=== PATIENT | male | born 1930 | race Caucasian/White ===

== ENCOUNTER 2016-04-20 16:57 | Inpatient (IN) | payer MEDICARE, OTHER ==
[~2016-04-20] VITALS: Ht 170.2 cm; Wt 72.9 kg
[~2016-04-20 16:57] MED LIST: ASPI325T PO; FISH1000 PO; HYDR500C PO; PROT40TA PO; VITA10003 PO; XARE15TA PO; ZOCO40TA PO
[2016-04-20 16:58] VITALS: BP 146/61; PULSE 88; RESP 16; TEMP 98.2; O2SAT 97
[2016-04-20] MEDS ORDERED: SODIUM CHLOR 0.9% 1000 ML INJ 1,000 ML IV SCH (17:35)
--- NOTE | 2016-04-20 17:52 | PD ---
HPI Chief Complaint: GI Complaint Time Seen by Provider: 17:48 Travel History International Travel<30 days: No Contact w/Intl Traveler<30days: No Traveled to known affect area: No History of Present Illness HPI 86-year-old male that presents to the ED for evaluation of dark stools. Per patient he has had dark stools 3 times since yesterday. Twice yesterday and once today. Per patient he recently was put on Xarelto for DVT by his PCP. Patient has been compliant with this medication. Per patient he has had no pain on the abdomen. No fevers chills or sweats. No chest pain or shortness of breath. No lightheadedness or dizziness. Per patient only concern is a dark stool. A sugar a sample of the stool and is definitely black. No obvious blood. Patient denies any history of hemorrhoids. Patient denies having anything like this before. No recent colonoscopy or EGD that he can tell me. He denies any history of bleeding disorders. PFSH Past Medical History Hx Anticoagulant Therapy: Yes (XARELTO) Blood Disorders: Yes (ELEVATED PLATELETS; TAKES MEDICATION FOR) Cardiac Catheterization: Yes (2 VESSEL IN 1999) Cardiovascular Problems: Yes (DOUBLE BYPASS) High Cholesterol: Yes Chemotherapy: No Coronary Artery Disease: Yes Diminished Hearing: Yes Endocrine: No Genitourinary: Yes Immune Disorder: No Kidney Stones: Yes (LITHOTRIPSY X 3) Musculoskeletal: No Neurologic: No Psychiatric: No Reproductive: No Respiratory: No Immunizations Current: Yes Radiation Therapy: No Past Surgical History AICD: No Arteriovenous Shunt: No Cardiac Surgery: Yes (CARDIAC CATH 2 VESSELS IN 1999) Coronary Artery Bypass Graft: Yes Genitourinary Surgery: Yes (LITHOTRIPSY X 3) Insulin Pump: No Joint Replacement: No Pacemaker: No Other Surgery: Yes (CYST ON HEAD REMOVED) Social History Alcohol Use: No Tobacco Use: No Substance Use: No Allergies-Medications (Allergen,Severity, Reaction): Coded Allergies: Gabapentin (Verified Adverse Reaction, Severe, Dizziness, 01/17/16) Reported Meds & Prescriptions Reported Meds & Active Scripts Active Reported Xarelto (Rivaroxaban) 20 Mg Tab 20 Mg PO DAILY Fish Oil ([place]-3 Fatty Acids) 1,000 Mg Cap 1 Cap PO DAILY Aspirin 325 Mg Tab 325 Mg PO DAILY Vitamin D-3 (Cholecalciferol) 1,000 Unit Tab 1,000 Units PO DAILY Hydrea (Hydroxyurea) 500 Mg Cap 500 Mg PO DAILY Zocor (Simvastatin) 40 Mg Tab 40 Mg PO HS Protonix (Pantoprazole Sodium) 40 Mg Tab 40 Mg PO DAILY Review of Systems Except as stated in HPI: all other systems reviewed are Neg Physical Exam Narrative GENERAL: SKIN: Warm and dry. HEAD: Atraumatic. Normocephalic. EYES: Pupils equal and round. No scleral icterus. No injection or drainage. ENT: No nasal bleeding or discharge. Mucous membranes pink and moist. Tongue is midline. No blood deviation. NECK: Trachea midline. No JVD. CARDIOVASCULAR: Regular rate and rhythm. RESPIRATORY: No accessory muscle use. Clear to auscultation. Breath sounds equal bilaterally. GASTROINTESTINAL: Abdomen soft, non-tender, nondistended. Hepatic and splenic margins not palpable. Rectal exam: Patient has dark stools noted on the rectum. No obvious blood or hemorrhoids noted. MUSCULOSKELETAL: Extremities without clubbing, cyanosis, or edema. No obvious deformities. NEUROLOGICAL: Awake and alert. No obvious cranial nerve deficits. Motor grossly within normal limits. Five out of 5 muscle strength in the arms and legs. Normal speech. PSYCHIATRIC: Appropriate mood and affect; insight and judgment normal. Data Data Last Documented VS Vital Signs Date Time Temp Pulse Resp B/P Pulse Ox O2 Delivery O2 Flow Rate FiO2 04/20/16 16:58 98.2 88 16 146/61 97 Orders Complete Blood Count With Diff (04/20/16 17:35) Comprehensive Metabolic Panel (04/20/16 17:35) Lipase (04/20/16 17:35) Prothrombin Time / Inr (Pt) (04/20/16 17:35) Act Partial Throm Time (Ptt) (04/20/16 17:35) Urinalysis - C+S If Indicated (04/20/16 17:35) Iv Access Insert/Monitor (04/20/16 17:35) Ecg Monitoring (04/20/16 17:35) Oximetry (04/20/16 17:35) Sodium Chlor 0.9% 1000 Ml Inj (Ns 1000 M (04/20/16 17:35) Electrocardiogram (04/20/16 17:35) Type And Screen (04/20/16 17:35) Pantoprazole Inj (Protonix Inj) (04/20/16 19:00) Labs Laboratory Tests Test 04/20/16 17:49 White Blood Count 7.5 TH/MM3 Red Blood Count 2.62 MIL/MM3 Hemoglobin 10.0 GM/DL Hematocrit 29.0 % Mean Corpuscular Volume 111.0 FL Mean Corpuscular Hemoglobin 38.2 PG Mean Corpuscular Hemoglobin 34.4 % Concent Red Cell Distribution Width 13.3 % Platelet Count 248 TH/MM3 Mean Platelet Volume 7.7 FL Neutrophils (%) (Auto) 48.3 % Lymphocytes (%) (Auto) 36.3 % Monocytes (%) (Auto) 10.0 % Eosinophils (%) (Auto) 4.0 % Basophils (%) (Auto) 1.4 % Neutrophils # (Auto) 3.6 TH/MM3 Lymphocytes # (Auto) 2.7 TH/MM3 Monocytes # (Auto) 0.7 TH/MM3 Eosinophils # (Auto) 0.3 TH/MM3 Basophils # (Auto) 0.1 TH/MM3 CBC Comment DIFF FINAL Differential Comment Prothrombin Time 15.2 SEC Prothromb Time International 1.4 RATIO Ratio Activated Partial 33.0 SEC Thromboplast Time Sodium Level 140 MEQ/L Potassium Level 3.7 MEQ/L Chloride Level 107 MEQ/L Carbon Dioxide Level 25.2 MEQ/L Anion Gap 8 MEQ/L Blood Urea Nitrogen 28 MG/DL Creatinine 1.60 MG/DL Estimat Glomerular Filtration 41 ML/MIN Rate Random Glucose 123 MG/DL Calcium Level 8.4 MG/DL Total Bilirubin 0.4 MG/DL Aspartate Amino Transf 11 U/L (AST/SGOT) Alanine Aminotransferase 17 U/L (ALT/SGPT) Alkaline Phosphatase 48 U/L Total Protein 6.6 GM/DL Albumin 3.0 GM/DL Lipase 91 U/L Blood Type A POSITIVE Antibody Screen NEGATIVE [facility] Medical Decision Making Medical Screen Exam Complete: Yes Emergency Medical Condition: Yes Medical Record Reviewed: Yes Interpretation(s) CBC & BMP Diagram 04/20/16 17:49 LFTs and lipase WNL EKG shows sinus rhythm with no sign of acute ischemia or arrhythmia. Coags are elevated Differential Diagnosis GI bleed versus diverticulitis versus coagulopathy Narrative Course 86-year-old male that presents to the ED for evaluation of dark stools. Patient was properly examined and was found to have signs and symptoms very consistent what appears to be upper GI bleed. Hemoccult was done by me and was positive. Patient currently on Xarelto which is a blood thinner. My recommendation at this time is to do blood work and possible scans. Case was discussed in my attending who agrees with plan. Patient was started on Protonix drip. Labs came back and show slight anemia. Patient had blood work done on april 10 and hematocrit and hemoglobin have dropped from 12/ to . Case was discussed in my attending who recommends admission as patient will need to be evaluated for possible continuation of anticoagulation versus IVC filter. As well as possible evaluation for GI consult. This was discussed with patient and family who agree with plan. Residents were paged. They agreed to admission. 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 Procedures EKG Prior to Arrival: No HemaPrompt Point of Care Internal Pos. & Neg. Controls: Passed Fecal Specimen Occult Blood: Positive Diagnosis Primary Impression: GI bleed Qualified Code: K25.4 - Gastrointestinal hemorrhage associated with gastric ulcer Additional Impressions: Coagulopathy Hemoglobin drop DVT (deep venous thrombosis) Qualified Code: I82.412 - Acute deep vein thrombosis (DVT) of femoral vein of left lower extremity Admitting Information Admitting Physician Requests: Admit Malcolm Wright Apr 20, 2016 17:52
[2016-04-20 18:01] LABS: AUTOMATED NEUTROPHIL # 3.6 TH/MM3 (1.8-7.7); BASOPHIL # 0.1 TH/MM3 (0-0.2); BASOPHIL % 1.4 % (0.0-2.0); EOSINOPHIL # 0.3 TH/MM3 (0-0.4); HEMO FLAGS DIFF FINAL; LYMPH % 36.3 % (9.0-44.0); LYMPHOCYTE # 2.7 TH/MM3 (1.0-4.8); MEAN CORPUSCULAR HEMOGLOBIN 38.2 PG (27.0-34.0); MEAN CORPUSCULAR HGB CONC 34.4 % (32.0-36.0); NEUT % 48.3 % (16.0-70.0); PLATELET COUNT 248 TH/MM3 (150-450); RED BLOOD COUNT 2.62 MIL/MM3 (4.50-5.90); RED CELL DISTRIBUTION WIDTH 13.3 % (11.6-17.2); WHITE BLOOD COUNT 7.5 TH/MM3 (4.0-11.0)
[2016-04-20] MEDS ORDERED: XARE20TA PO (18:12)
[2016-04-20 18:16] LABS: INTERNATIONAL NORMALIZED RATIO 1.4 RATIO; PROTHROMBIN TIME - PATIENT 15.2 SEC (9.8-11.6)
[2016-04-20 18:27] LABS: ANION GAP 8 MEQ/L (5-15); AST (GOT) 11 U/L (15-37); BICARBONATE 25.2 MEQ/L (21.0-32.0); BLOOD UREA NITROGEN 28 MG/DL (7-18); CHLORIDE 107 MEQ/L (98-107); GLOMERULAR FILTRATION RATE 41 ML/MIN (>89); POTASSIUM 3.7 MEQ/L (3.5-5.1); SODIUM (NA) 140 MEQ/L (136-145)
[2016-04-20 18:31] LABS: ALKALINE PHOSPHATASE 48 U/L (45-117); ALT (GPT) 17 U/L (12-78); TOTAL BILIRUBIN ADULT 0.4 MG/DL (0.2-1.0)
--- NOTE | 2016-04-20 19:46 | HHI.HP ---
[facility] Service Family Medicine Primary Care Physician Rosi Ramirez MD Admission Diagnosis Diagnoses: International Travel<30 Days: No Contact w/Intl Traveler<30days: No Known Affected Area: No History of Present Illness 86-year-old male with a recent past medical history of DVT who was just started on xarelto 3 weeks ago presents to the ER with dark stools for 2 days. Yesterday, he noticed 3 dark, tarry stools. All were formed. He brings in a sample of his stool in a jar. Again today, he noticed dark stools 2. He denies abdominal pain. No nausea, vomiting, diarrhea, constipation. His last colonoscopy was in 2007 as was normal. Review of Systems Constitutional: COMPLAINS OF: Weight loss (lost 12 pounds in 2-3 months), DENIES: Fever, Chills Eyes: DENIES: Blurred vision, Diplopia Ears, nose, mouth, throat: DENIES: Hearing loss, Vertigo Respiratory: DENIES: Cough, Shortness of breath Cardiovascular: DENIES: Chest pain, Palpitations Gastrointestinal: COMPLAINS OF: Black stools, Constipation (gets constipated 1- 2 times a month), DENIES: Abdominal pain, Bloody stools, Diarrhea, Nausea, Vomiting Genitourinary: DENIES: Urgency, Dysuria Neurologic: DENIES: Abnormal gait, Headache Psychiatric: DENIES: Anxiety, Confusion Past Family Social History Past Medical History Chronic kidney disease Multiple skin cancers Kidney stones Chronic myeloproliferative disorder Coronary artery disease Cataracts Spinal Stenosis Past Surgical History Colonoscopy in 2007 Heart bypass in 1999 Cataracts in 1992 Reported Medications Reported Meds & Active Scripts Active Reported Xarelto (Rivaroxaban) 20 Mg Tab 20 Mg PO DAILY Fish Oil ([place]-3 Fatty Acids) 1,000 Mg Cap 1 Cap PO DAILY Aspirin 325 Mg Tab 325 Mg PO DAILY Vitamin D-3 (Cholecalciferol) 1,000 Unit Tab 1,000 Units PO DAILY Hydrea (Hydroxyurea) 500 Mg Cap 500 Mg PO DAILY Zocor (Simvastatin) 40 Mg Tab 40 Mg PO HS Protonix (Pantoprazole Sodium) 40 Mg Tab 40 Mg PO DAILY Allergies: Coded Allergies: Gabapentin (Verified Adverse Reaction, Severe, Dizziness, 01/17/16) Active Ordered Medications Active Medications Pantoprazole Sodium/Sodium Chloride (Protonix Inj/NS Inj) 100 ml @ 10 mls/hr Q10H IV; Start 04/20/16 at 19:00 Sodium Chloride 1,000 ml @ 1,000 mls/hr Q1H IV Last administered on 04/20/16t 18 :29; Admin Dose 1,000 MLS/HR; Start 04/20/16 at 17:35; Stop 04/20/16 at 18:34; Status DC Family History Mom: doesn't know Dad: colon cancer, 80s Son: healthy Social History Tobacco: none Alcohol: none Illicit: none Physical Exam Vital Signs Vital Signs Date Time Temp Pulse Resp B/P Pulse Ox O2 Delivery O2 Flow Rate FiO2 04/20/16 16:58 98.2 88 16 146/61 97 Physical Exam GENERAL: This is a well-nourished, well-developed patient, in no apparent distress. SKIN: No rashes, ecchymoses or lesions. Cool and dry. HEAD: Atraumatic. Normocephalic. No temporal or scalp tenderness. EYES: Pupils equal round and reactive. Extraocular motions intact. No scleral icterus. No injection or drainage. ENT: Nose without bleeding, purulent drainage or septal hematoma. Throat without erythema, tonsillar hypertrophy or exudate. Uvula midline. Airway patent. NECK: Trachea midline. No JVD or lymphadenopathy. Supple, nontender, no meningeal signs. CARDIOVASCULAR: Regular rate and rhythm without murmurs, gallops, or rubs. RESPIRATORY: Clear to auscultation. Breath sounds equal bilaterally. No wheezes , rales, or rhonchi. GASTROINTESTINAL: Abdomen soft, non-tender, nondistended. No hepato-splenomegaly , or palpable masses. No guarding. MUSCULOSKELETAL: Extremities without clubbing, cyanosis, or edema. No joint tenderness, effusion, or edema noted. No calf tenderness. Negative Homans sign bilaterally. NEUROLOGICAL: Awake and alert. Cranial nerves II through XII intact. Motor and sensory grossly within normal limits. Five out of 5 muscle strength in all muscle groups. Normal speech. Laboratory Laboratory Tests Test 04/20/16 17:49 White Blood Count 7.5 Red Blood Count 2.62 Hemoglobin 10.0 Hematocrit 29.0 Mean Corpuscular Volume 111.0 Mean Corpuscular Hemoglobin 38.2 Mean Corpuscular Hemoglobin 34.4 Concent Red Cell Distribution Width 13.3 Platelet Count 248 Mean Platelet Volume 7.7 Neutrophils (%) (Auto) 48.3 Lymphocytes (%) (Auto) 36.3 Monocytes (%) (Auto) 10.0 Eosinophils (%) (Auto) 4.0 Basophils (%) (Auto) 1.4 Neutrophils # (Auto) 3.6 Lymphocytes # (Auto) 2.7 Monocytes # (Auto) 0.7 Eosinophils # (Auto) 0.3 Basophils # (Auto) 0.1 CBC Comment DIFF FINAL Differential Comment Prothrombin Time 15.2 Prothromb Time International 1.4 Ratio Activated Partial 33.0 Thromboplast Time Sodium Level 140 Potassium Level 3.7 Chloride Level 107 Carbon Dioxide Level 25.2 Anion Gap 8 Blood Urea Nitrogen 28 Creatinine 1.60 Estimat Glomerular Filtration 41 Rate Random Glucose 123 Calcium Level 8.4 Total Bilirubin 0.4 Aspartate Amino Transf 11 (AST/SGOT) Alanine Aminotransferase 17 (ALT/SGPT) Alkaline Phosphatase 48 Total Protein 6.6 Albumin 3.0 Lipase 91 Blood Type A POSITIVE Antibody Screen NEGATIVE Result Diagram: 04/20/16174804/20/16 174 Assessment and Plan Assessment and Plan 86-year-old male being admitted for GI bleed. Hemoccult positive. His hemoglobin has decreased from 12.3 to 10.0 from 04/10-04/20 Code Status Full Problem List: (1) GI bleed Status: Acute Plan: The ER physician has consulted gastroenterology and hematology given the patient's history of DVT and new onset GI bleed. Hemoglobin stable at 10.0 -Repeat H&H at 0000 on04/21 -Continue Protonix drip -Type and cross -Nothing by mouth at midnight in case GI plans to scope this patient. -Normal saline at 130 ml per hour (2) Chronic Renal Failure / insufficiency, unspec Status: Chronic Plan: Creatinine stable at 1.6 (3) DVT (deep venous thrombosis) Status: Acute Plan: Patient has a known left femoral DVT prior to admission. He was started on xarelto for anticoagulation. Hold xarelto given GI bleed as above. Hematology has been consulted (4) FEN/PPX Status: Acute Plan: Fluids: Normal saline at 130 ML per hour Electrolytes: Monitor and replace when necessary Nutrition: Nothing by mouth at midnight Prophylaxis: Bilateral SCDs. Hold xarelto Chronic medical conditions: Chronic myeloproliferative disorder-continue hydroxyurea Hyperlipidemia: Continue Zocor Physician Certification 2 Midnight Certification Type: Admission for Inpatient Services Order for Inpatient Services The services are ordered in accordance with Medicare regulations or non- Medicare payer requirements, as applicable. In the case of services not specified as inpatient-only, they are appropriately provided as inpatient services in accordance with the 2-midnight benchmark. Estimated LOS (days): 2 days is the estimated time the patient will need to remain in the hospital, assuming treatment plan goals are met and no additional complications. Post-Hospital Plan: Home Problem Qualifiers (1) GI bleed: Qualified Code: K25.4 - Gastrointestinal hemorrhage associated with gastric ulcer (2) DVT (deep venous thrombosis): Qualified Code: I82.412 - Acute deep vein thrombosis (DVT) of femoral vein of left lower extremity Ty Ramirez MD R2 Apr 20, 2016 19:46
[2016-04-20] MEDS ORDERED: ACETAMINOPHEN 325 MG TAB PO PRN (20:30)
[2016-04-20] MEDS ORDERED: hydrALAZINE HCL 10 MG TAB PO PRN (20:30)
[2016-04-20] MEDS ORDERED: ONDANSETRON HCL 4 MG/2 ML VIAL IV PRN (20:30)
[2016-04-20] MEDS ORDERED: SODIUM CHLORIDE 0.9% FLUSH 5 ML FLUSH FLUSH PRN (20:30)
[2016-04-20] MEDS ORDERED: NON-FORMULARY DRUG (Simvastatin (Zocor) 40 MG) PO SCH (21:00)
--- NOTE | 2016-04-20 21:40 | EKG ---
Date Performed: 04/20/2016 Time Performed: 17:59:52 PTAGE: 86 years EKG: SINUS BRADYCARDIA WITH OCCASIONAL SUPRAVENTRICULAR PREMATURE COMPLEXES NONSPECIFIC ST & T-[address] ABNORMALITY BORDERLINE ECG PREVIOUS TRACING : 10/21/2015 07.42 No significant change DOCTOR: Jean-Claude Seay Interpretating Date/Time 04/20/2016 21:39:40
[2016-04-20] MEDS: SODIUM CHLOR 0.9% 1000 ML INJ 1,000 ML IV SCH (21:51)
[2016-04-20] MEDS: PANTOPRAZOLE INJ 80 MG in SODIUM CHLORIDE 0.9% INJ 100 ML IV SCH (21:51)
[2016-04-20 23:56] LABS: HEMATOCRIT 25.5 % (39.0-51.0); REVIEW FLAG FINAL
[2016-04-21] VITALS (7 sets, daily range): BP systolic 114–163; BP diastolic 55–95; PULSE 59–80; RESP 16; TEMP 96–97; O2SAT 95–100
[2016-04-21] MEDS: SODIUM CHLOR 0.9% 1000 ML INJ 1,000 ML IV SCH (00:11)
[2016-04-21] MEDS: PRAVASTATIN SOD 80 MG TAB PO SCH ×2 (00:12→21:19)
[2016-04-21 06:59] LABS: ALT (GPT) 13 U/L (12-78); ANION GAP 5 MEQ/L (5-15); AST (GOT) 10 U/L (15-37); BICARBONATE 26.6 MEQ/L (21.0-32.0); BLOOD UREA NITROGEN 23 MG/DL (7-18); CHLORIDE 114 MEQ/L (98-107); GLOMERULAR FILTRATION RATE 47 ML/MIN (>89); POTASSIUM 4.1 MEQ/L (3.5-5.1); SODIUM (NA) 146 MEQ/L (136-145)
[2016-04-21 07:02] LABS: ALKALINE PHOSPHATASE 42 U/L (45-117); TOTAL BILIRUBIN ADULT 0.4 MG/DL (0.2-1.0)
[2016-04-21 07:08] LABS: AUTOMATED NEUTROPHIL # 3.8 TH/MM3 (1.8-7.7); BASOPHIL # 0.1 TH/MM3 (0-0.2); BASOPHIL % 1.1 % (0.0-2.0); EOSINOPHIL # 0.3 TH/MM3 (0-0.4); EOSINOPHIL % 4.5 % (0.0-4.0); HEMATOCRIT 26.4 % (39.0-51.0); HEMO FLAGS DIFF FINAL; LYMPH % 30.2 % (9.0-44.0); LYMPHOCYTE # 2.1 TH/MM3 (1.0-4.8); MEAN CELL VOLUME 111.3 FL (80.0-100.0); MEAN CORPUSCULAR HEMOGLOBIN 38.8 PG (27.0-34.0); MEAN CORPUSCULAR HGB CONC 34.8 % (32.0-36.0); MONO % 9.9 % (0.0-8.0); NEUT % 54.3 % (16.0-70.0); PLATELET COUNT 198 TH/MM3 (150-450); RED BLOOD COUNT 2.37 MIL/MM3 (4.50-5.90); RED CELL DISTRIBUTION WIDTH 13.5 % (11.6-17.2); WHITE BLOOD COUNT 7.1 TH/MM3 (4.0-11.0)
[2016-04-21] MEDS: LACTATED RINGER'S 1000 ML INJ 1,000 ML IV SCH ×2 (08:55→16:30)
[2016-04-21] MEDS: PANTOPRAZOLE INJ 80 MG in SODIUM CHLORIDE 0.9% INJ 100 ML IV SCH ×2 (08:55→21:19)
[2016-04-21] MEDS: HYDROXYUREA 500 MG CAP PO SCH (09:00)
--- NOTE | 2016-04-21 10:34 | HHI.FPPN ---
Subjective Remarks Pt. seen, examined and discussed with the Med A team. This is an 86 yo male who presents with a 2-3 day history of black tarry stools. On March 29, patient had a left lower extremity venous Doppler after having been seen approximately one week prior by his urologist. He noted that the lower extremity was swollen and ordered the test. Turned out that the result was extensive deep venous thrombosis within the left common femoral, superficial femoral, popliteal and peroneal veins. 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 Please refer to the history and physical examination for this admission for additional past, family and social history. Patient was a [employer], lives with his locally. He does not smoke or use alcohol. He has a son who lives locally and helps out his parents. Review of systems was obtained at the time of admission, and again reviewed with the patient this morning. Other than some disequilibrium and balance issues, low back pain from his spinal stenosis, skin problems with skin cancer of the scalp, and the black stools, all other systems are reported as negative. He denies any bright red blood per rectum, no hematemesis, no nausea. This morning, he reports that he did see even danyelle, tarrier stools when he had a bowel movement. He denies any pain in his chest, no abdominal pain, he is not lightheaded or dizzy when he gets up to go to the bathroom. Still has some swelling in his left leg. Objective Vitals Vital Signs Date Time Temp Pulse Resp B/P Pulse Ox O2 Delivery O2 Flow Rate FiO2 04/21/16 04:32 96.8 64 16 114/55 97 04/21/16 01:17 Room Air 04/21/16 00:07 96.6 73 16 163/65 96 04/20/16 16:58 98.2 88 16 146/61 97 I/O 04/20/16 04/20/16 04/20/16 04/21/16 04/21/16 04/21/16 07:00 15:00 23:00 07:00 15:00 23:00 Intake Total 1217 ml Balance 1217 ml Intake Oral 0 ml IV Total 1217 ml Result Diagram: 04/21/16 0512 04/21/16 0512 Other Results Laboratory Tests Test 04/20/16 04/20/16 04/21/16 17:49 23:35 05:12 White Blood Count 7.5 TH/MM3 7.1 TH/MM3 Red Blood Count 2.62 MIL/MM3 2.37 MIL/MM3 Hemoglobin 10.0 GM/DL 9.0 GM/DL 9.2 GM/DL Hematocrit 29.0 % 25.5 % 26.4 % Mean Corpuscular Volume 111.0 FL 111.3 FL Mean Corpuscular Hemoglobin 38.2 PG 38.8 PG Mean Corpuscular Hemoglobin 34.4 % 34.8 % Concent Red Cell Distribution Width 13.3 % 13.5 % Platelet Count 248 TH/MM3 198 TH/MM3 Mean Platelet Volume 7.7 FL 7.7 FL Neutrophils (%) (Auto) 48.3 % 54.3 % Lymphocytes (%) (Auto) 36.3 % 30.2 % Monocytes (%) (Auto) 10.0 % 9.9 % Eosinophils (%) (Auto) 4.0 % 4.5 % Basophils (%) (Auto) 1.4 % 1.1 % Neutrophils # (Auto) 3.6 TH/MM3 3.8 TH/MM3 Lymphocytes # (Auto) 2.7 TH/MM3 2.1 TH/MM3 Monocytes # (Auto) 0.7 TH/MM3 0.7 TH/MM3 Eosinophils # (Auto) 0.3 TH/MM3 0.3 TH/MM3 Basophils # (Auto) 0.1 TH/MM3 0.1 TH/MM3 CBC Comment DIFF FINAL DIFF FINAL Differential Comment Prothrombin Time 15.2 SEC Prothromb Time International 1.4 RATIO Ratio Activated Partial 33.0 SEC Thromboplast Time Sodium Level 140 MEQ/L 146 MEQ/L Potassium Level 3.7 MEQ/L 4.1 MEQ/L Chloride Level 107 MEQ/L 114 MEQ/L Carbon Dioxide Level 25.2 MEQ/L 26.6 MEQ/L Anion Gap 8 MEQ/L 5 MEQ/L Blood Urea Nitrogen 28 MG/DL 23 MG/DL Creatinine 1.60 MG/DL 1.43 MG/DL Estimat Glomerular Filtration 41 ML/MIN 47 ML/MIN Rate Random Glucose 123 MG/DL 87 MG/DL Calcium Level 8.4 MG/DL 8.2 MG/DL Total Bilirubin 0.4 MG/DL 0.4 MG/DL Aspartate Amino Transf 11 U/L 10 U/L (AST/SGOT) Alanine Aminotransferase 17 U/L 13 U/L (ALT/SGPT) Alkaline Phosphatase 48 U/L 42 U/L Total Protein 6.6 GM/DL 5.4 GM/DL Albumin 3.0 GM/DL 2.5 GM/DL Lipase 91 U/L Blood Type A POSITIVE Antibody Screen NEGATIVE Objective Remarks O. CONSTITUTIONAL/GEN: normally nourished, in NAD. Lying comfortably in bed. EYES: conjunctiva normal, PERRLA, EOMI. ENT: Mouth and pharynx normal. Mucous membranes a little dry. NECK: Supple, no lymphadenopathy LUNGS: clear A-P, respiratory effort is normal. CARDIOVASCULAR: RR without murmur or gallop. No significant edema. GI/ABD: soft without masses, without organomegaly. Nontender to palpation, positive bowel sounds. NEURO: No focal deficits. SKIN: color normal, no rashes noted. HEME/LYMPH: no bruising, petechia or significant adenopathy MUSC: Fair capillary refill, SCDs in place on lower extremities. PSYCH/MENTAL STATUS: Alert and oriented x 3. A/P Assessment and Plan 86-year-old male being admitted for GI bleed. Hemoccult positive. His hemoglobin has decreased from 12.3 to 10.0 from from April 10 to April 20. Attending Attestation Patient seen and examined. Case reviewed and discussed with the resident team. Agree with plan of care as discussed with me and documented in the resident note. Problem List: (1) GI bleed Status: Acute Plan: The ER physician has consulted gastroenterology and hematology given the patient's history of DVT and new onset GI bleed. Hemoglobin stable at 10.0 -Repeat H&H at 0000 was 9.2 -Continue Protonix drip -Type and cross -Nothing by mouth at midnight in case GI plans to scope this patient. -Normal saline at 130 ml per hour (2) Chronic Renal Failure / insufficiency, unspec Status: Chronic Plan: Creatinine stable at 1.6 (3) DVT (deep venous thrombosis) Status: Acute Plan: Patient has a known left femoral DVT prior to admission. He was started on xarelto for anticoagulation on March 29 Hold xarelto given GI bleed as above. Hematology has been consulted (4) FEN/PPX Status: Acute Plan: Fluids: Normal saline at 130 ML per hour Electrolytes: Monitor and replace when necessary Nutrition: Nothing by mouth at midnight Prophylaxis: Bilateral SCDs. Hold xarelto Chronic medical conditions: Chronic myeloproliferative disorder-continue hydroxyurea Hyperlipidemia: Continue Zocor Problem Qualifiers (1) GI bleed: Qualified Code: K25.4 - Gastrointestinal hemorrhage associated with gastric ulcer (2) DVT (deep venous thrombosis): Qualified Code: I82.412 - Acute deep vein thrombosis (DVT) of femoral vein of left lower extremity Rosi Ramirez MD Apr 21, 2016 10:34
[2016-04-21] MEDS ORDERED: CYANOCOBALAMIN 1000 MCG/ML VIAL SQ ONE (14:00)
[2016-04-21] MEDS: PHYTONADIONE 5 MG TAB PO SCH (14:00)
[2016-04-21] MEDS ORDERED: PROPOFOL 200 MG/20 ML AMP IV ONE (15:55)
[2016-04-21] MEDS ORDERED: DO NOT ADM ANY ANTICOAGULANT DRUGS XX PRN (16:15)
--- NOTE | 2016-04-21 17:27 | MB ---
cc: ARACELI CALDERA MD, RICARDO P. PA DEVERAS, RUBY ANNE E. M.D. HOWARD, SUSAN W. MD DATE OF CONSULTATION 04/21/16 [address] Malcolm Wright. CHIEF COMPLAINT Malcolm Wright requests a consultation for Mr. Bhat regarding GI bleed on Xarelto complicating extensive left lower extremity deep vein thromboses. Question of filter placement. HISTORY OF PRESENT ILLNESS Mr. Bhat is an 86-year-old man well-known patient to Dr. Araceli Caldera with history of OLIVER 2 positive essential thrombocytosis. His disease is well controlled on Hydrea 500 mg once a day. He was last seen by Dr. Caldera on 04/11/2016. Mr. Bhat's course is complicated by extensive left lower extremity deep vein thromboses for which he was placed on anticoagulant therapy with Xarelto. Dr. Caldera recommend continuing Xarelto and place him on 20 mg once daily dosing as complete. Mr. Bhat has had normal hemoglobin until March 2016. His MCV is elevated. His platelet count is well-controlled on the Hydrea dating back to labs seen to 2001. His white cell count is normal. He has renal insufficiency dating back to 2005. His kidney function was around 30-40%. Mr. Bhat was tolerating the Xarelto and Hydrea well. There is no contraindication for concurrent use of the medication. He has near resolution of the swelling of the left lower leg. He developed dark colored stool and presented to the emergency room on April. He had PT/PTT both prolonged consistent with compliance with Xarelto. His hemoglobin has decreased to 9.2, platelet count is normal, white blood cell count is normal. His BUN is 28 and creatinine 1.6. He was admitted promptly and he has been monitored. He is hemodynamically stable, however, he continues to have dark stools. He had dark stools in the morning of the consultation. Mr. Bhat denies any pain. He has no prior history of deep vein thromboses or GI bleeding. He has no headaches. No vision changes. No nausea or vomiting. His appetite is good. His swelling in the leg has improved. Denies any chest pain or shortness of breath. The rest of his review of systems is negative. PAST MEDICAL HISTORY 1. Essential thrombocytosis OLIVER 2 positive 2. Chronic myeloproliferative disorder, 3. Coronary artery disease. 4. Cataract 5. Spinal stenosis 6. Nephrolithiasis 7. Multiple skin cancers 8. Chronic kidney disease, 9. 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 PAST SURGICAL HISTORY 1. Colonoscopy 2. Heart bypass 3. Cataract surgery FAMILY HISTORY Father of colon cancer in his 80s. SOCIAL HISTORY He is , lives with his , denies any tobacco, alcohol or illicit drug use. ALLERGIES GABAPENTIN MEDICATIONS Current include 1. Hydrea. 2. Lactated Ringer's. 3. Pravachol 4. Hydralazine 5. Pantoprazole. PHYSICAL EXAMINATION VITAL SIGNS: Temperature 96.8, heart rate 59, respiratory rate 16, blood pressure 127/95, saturation 95%. GENERAL: Mr. Bhat is a well-developed, well-nourished elderly man in no acute distress. He looks his stated age. He is awake, alert, oriented and clear minded. He is making decisions for himself. HEENT: Pupils are round, reactive to light and accommodation. Conjunctivae are pink. Oropharynx is clear. NECK: Supple. LUNGS: Clear. CARDIOVASCULAR: Normal rate, rhythm. ABDOMEN: Benign EXTREMITIES: lower extremity with mild asymmetry, left leg more prominent than the right. Pneumatic compression stockings are in place. Pulses are palpable. NEUROLOGIC: Exam is nonfocal. LABORATORY DATA As described above. ASSESSMENT/PLAN Mr. Bhat is an 86 year old man with multiple medical problems. He is seen in hematology for a OLIVER 2 positive chronic myeloproliferative disorder/essential thrombocythemia. He has platelets well-controlled on the Hydrea. Unfortunately, he developed thrombotic event recently with extensive left lower extremity deep vein thromboses. He has tolerated the Hydrea and the Xarelto well until development of GI bleed as evidenced by the decrease in hemoglobin and dark colored stools. Gastroenterology has been consulted. He remains on proton pump inhibitor. He unfortunately continues to bleed with persistence of his dark colored stool. This is probably owing to the long half life of the anticoagulant. There is evidence of persistent effect of the drug with prolonged PT and PTT. I discussed with Mr. Bhat risk and benefit of inferior vena cava filter placement. He meets criteria as he has acute bleeding with contraindication to anticoagulant therapy. He is unable to make a decision. He and his wish to discuss further this option. They request to be able to speak to radiology who places the filter to make their decision. We discussed the competing needs of needing anticoagulant therapy for his left lower extremity deep vein thromboses and needing to stop it because of his GI bleeding. We are concerned about the risk of thrombotic event from the left lower extremity deep vein clot while he is off anticoagulant therapy. It is not known how long it will take to resolve the issue of bleeding. In the meantime, supportive therapy with vitamin K is administered. Coag will be checked. His anticoagulant therapy with Xarelto has already been placed on hold. Currently, there is no antidote to Xarelto. Transfusion for hemoglobin less than eight or symptoms. Mr. Bhat's Hydrea continues as planned. His questions were answered to his satisfaction. Interventional radiology will be consulted for information gathering. We will support the patient in is decision. He understands the risk and benefit of his refusal. MD RAVINDER Berkowitz/ /12:43 PM /4:52 PM
--- NOTE | 2016-04-21 18:10 | RADRPT ---
EXAM DATE/TIME: 04/21/2016 16:59 [facility] COMPARISON: No previous studies available for comparison. EXTERNAL COMPARISON : [facility], US LEG, LEFT VENOUS DOPPLER, March 29, 2016 INDICATIONS : Left lower extremity swelling. MEDICAL HISTORY : Hypercholesterolemia. Deep venous thrombosis. Renal calculi. CAD. Elevated platelets. Anticoagulan t therapy, Xarelto. SURGICAL HISTORY : Eye implant x2. Cardiac cath. Lithotripsy x3. Blood transfusions. Cyst on head removed. ENCOUNTER: Subsequent ACUITY: 3 weeks PAIN SCORE: 2/10 LOCATION: Left leg. TECHNIQUE: Venous ultrasound of the leg was performed from the inguinal ligament to the proximal calf. Real-toshia e, color Doppler and spectral tracing, compression and augmentation techniques were used. FINDINGS: There is nonocclusive thrombus in the left proximal to distal superficial femoral vein. Distal veins are open and patent CONCLUSION: Nonocclusive thrombus in the superficial femoral vein proximal to distal. Sravan Lopez MD on April 21, 2016 at 18:08 Board Certified Radiologist. This report was verified electronically.
--- NOTE | 2016-04-21 19:10 | MB ---
cc: DENY SINGLETARY M.D. DATE OF CONSULTATION: 04/21/2016. REASON FOR CONSULTATION: Anemia, GI bleed. DATE OF : 1930. HISTORY OF PRESENT ILLNESS: Thank you for the consultation. This is an 86-year-old gentleman who was recently diagnosed with a DVT. The patient was started on Xarelto three weeks ago. The patient started having black tarry stool yesterday with multiple episodes. He brought a sample to the hospital, which was heme- positive with dark stool. The patient denies any symptoms. No nausea. No vomiting. No abdominal pain or constipation. He does not remember having an endoscopy before. He denied any other symptoms. PAST SURGICAL HISTORY: 1. Colonoscopy in 2007. 2. Heart bypass in 1999. 3. Cataract in 1992. MEDICATIONS: Reviewed in the chart. PAST MEDICAL HISTORY: Significant for: 1. Kidney stones. 2. Myeloproliferative disorder. 3. Coronary artery disease. 4. Cataracts. 5. Spinal stenosis. 6. Chronic kidney disease. 7. Skin cancer. ALLERGIES: GABAPENTIN. FAMILY HISTORY: Colon cancer. SOCIAL HISTORY: No tobacco, drug or alcohol. PHYSICAL EXAMINATION: GENERAL: Alert, oriented IN no acute distress. VITAL SIGNS: Stable. HEAD, EYES, EARS, NOSE, THROAT: Pupils are reactive to light. NECK: The neck is supple. CHEST: Clear. CARDIAC: Regular rate and rhythm. ABDOMEN: The abdomen is soft, nontender and nondistended. Positive bowel sounds. EXTREMITIES: No edema, clubbing or cyanosis at this time. NEUROLOGIC: He is neurologically intact with normal muscular and neurological function. Psychologically appropriate. LABORATORY DATA: Potassium 4.1, sodium 146, creatinine 1.43, total bilirubin 0.4, AST 10, ALT 13. White count 7.1, hemoglobin 9.2 down from 10.0, platelets 198,000. INR 1.4. ASSESSMENT AND PLAN: A pleasant 86-year-old gentleman with heme-positive stool, GI bleed, and melena on Xarelto. I recommend doing upper endoscopy and I am planning on doing this today since he seems to be actively bleeding. I discussed with them the procedure and complications. He agreed to have it done. Meanwhile we will continue supportive care. We will give him packed RBCs as needed. Further plan to follow. MD JINNY Bustos/KARLY /2:07 PM /7:00 PM
--- NOTE | 2016-04-21 22:41 | MR ---
cc: DENY DWYER DATE 04/21/16 DATE OF [address] Rosi Ramirez PROCEDURE Upper gastrointestinal endoscopy. ENDOSCOPIST Dr. Dwyer MEDICATIONS Propofol administered by anesthesia. INSTRUMENT Pentax upper scope. INDICATION An 86-year-old gentleman who has been on anticoagulation for a few weeks. The patient has black stool and anemia. PROCEDURE After informing the patient about the procedure and complication consent was signed. The patient was placed on his left lateral decub. Adequate sedation was achieved by propofol. Scope was placed in the mouth, advanced under video guidance to the second portion of the duodenum. The scope drawn back to the stomach. Retroflexion was performed. Then the scope drawn back without immediate complication. FINDINGS Esophagus: Proximal esophagitis, not biopsied because of anticoagulation. Stomach: Normal. Duodenum: Normal. No sign of active bleeding or old blood. No coffee-ground emesis. RECOMMENDATIONS 1. Monitor CBC. 2. Colonoscopy on Saturday. If negative the patient will need capsule endoscopy as an outpatient. 3. Protonix 40 milligrams daily. MD JINNY Bustos/PORTILLO /4:11 PM /10:28 PM
[2016-04-22] VITALS: BP 119/58; PULSE 72; RESP 16; TEMP 96.7; O2SAT 97
[2016-04-22] MEDS: LACTATED RINGER'S 1000 ML INJ 1,000 ML IV SCH ×3 (00:54→16:30)
[2016-04-22 05:58] LABS: AUTOMATED NEUTROPHIL # 3.9 TH/MM3 (1.8-7.7); BASOPHIL # 0.1 TH/MM3 (0-0.2); BASOPHIL % 1.1 % (0.0-2.0); EOSINOPHIL # 0.3 TH/MM3 (0-0.4); HEMATOCRIT 25.6 % (39.0-51.0); HEMO FLAGS DIFF FINAL; LYMPHOCYTE # 1.8 TH/MM3 (1.0-4.8); MEAN CELL VOLUME 110.3 FL (80.0-100.0); MEAN CORPUSCULAR HEMOGLOBIN 38.8 PG (27.0-34.0); MEAN CORPUSCULAR HGB CONC 35.2 % (32.0-36.0); MONO % 9.6 % (0.0-8.0); NEUT % 58.3 % (16.0-70.0); PLATELET COUNT 185 TH/MM3 (150-450); RED BLOOD COUNT 2.32 MIL/MM3 (4.50-5.90); RED CELL DISTRIBUTION WIDTH 13.4 % (11.6-17.2); WHITE BLOOD COUNT 6.7 TH/MM3 (4.0-11.0)
[2016-04-22 06:09] LABS: APTT (PATIENT) 27.8 SEC (24.3-30.1); INTERNATIONAL NORMALIZED RATIO 1.1 RATIO; PROTHROMBIN TIME - PATIENT 11.9 SEC (9.8-11.6)
[2016-04-22] MEDS: PANTOPRAZOLE INJ 80 MG in SODIUM CHLORIDE 0.9% INJ 100 ML IV SCH (06:27)
[2016-04-22] MEDS: PHYTONADIONE 5 MG TAB PO SCH (08:02)
[2016-04-22] MEDS: HYDROXYUREA 500 MG CAP PO SCH (08:06)
[2016-04-22] MEDS: PANTOPRAZOLE SODIUM 40 MG VIAL IV PUSH SCH (09:00)
--- NOTE | 2016-04-22 09:01 | HHI.FPPN ---
Subjective Remarks Patient had one bowel movement yesterday which was dark black. No abdominal pain. No nausea, vomiting, fever, chills, shortness of breath. He understands the plan tomorrow is for colonoscopy. He understands his endoscopy was normal. All questions answered. (Ty Ramirez MD R2) Objective Vitals Vital Signs Date Time Temp Pulse Resp B/P Pulse Ox O2 Delivery O2 Flow Rate FiO2 04/22/16 00:00 96.7 72 16 119/58 97 04/21/16 20:00 97.0 67 16 153/67 96 04/21/16 18:05 98 Nasal Cannula 2.00 04/21/16 16:20 97.7 84 100 Nasal Cannula 2 04/21/16 16:15 70 12 118/50 99 Nasal Cannula 2 04/21/16 16:04 97.7 87 12 100/57 98 Nasal Cannula 2 04/21/16 16:00 96.0 80 16 147/59 100 04/21/16 12:00 96.6 65 16 126/59 95 I/O 04/21/16 04/21/16 04/21/16 04/22/16 04/22/16 04/22/16 07:00 15:00 23:00 07:00 15:00 23:00 Intake Total 1217 ml 0 ml 760 ml 480 ml Output Total 100 ml 350 ml Balance 1217 ml -100 ml 760 ml 130 ml Intake Oral 0 ml 0 ml 360 ml 480 ml IV Total 1217 ml Other 400 ml Output Urine Total 100 ml 350 ml # Voids 2 1 # Bowel Movements 0 1 (Ty Ramirez MD R2) Result Diagram: 04/22/16 0508 04/21/16 0512 Objective Remarks O. CONSTITUTIONAL/GEN: normally nourished, in NAD. Lying comfortably in bed. ENT: Mouth and pharynx normal. Mucous membranes a little dry. LUNGS: clear A-P, respiratory effort is normal. CARDIOVASCULAR: RR without murmur or gallop. No significant edema. GI/ABD: soft without masses, without organomegaly. Nontender to palpation, positive bowel sounds. NEURO: No focal deficits. SKIN: color normal, no rashes noted. HEME/LYMPH: no bruising, petechia or significant adenopathy MUSC: Fair capillary refill, SCDs in place on lower extremities. Left leg enlarged secondary to known DVT. PSYCH/MENTAL STATUS: Alert and oriented x 3. (Ty Ramirez MD R2) A/P Assessment and Plan 86-year-old male being admitted for GI bleed. Hemoccult positive. GI consult. Discharge Planning Pending GI/hematology/interventional radiology recommendations. (Ty Ramirez MD R2) Attending Attestation Patient seen and examined. Case reviewed and discussed with the resident team. Agree with plan of care as discussed with me and documented in the resident note. (Rosi Ramirez MD) Problem List: (1) GI bleed Status: Acute Plan: Gastroenterology and hematology have been consult given the patient's history of DVT and new onset GI bleed. Hemoglobin stable -EGD on 04/21 was normal. -Colonoscopy planned for 04/23 -Pending colonoscopy results, patient may need capsule endoscopy as outpatient -Protonix 40 mg IV daily. -Lactated Ringer's at 125 ml per hour See DVT below for hematology recommendations. (2) Chronic Renal Failure / insufficiency, unspec Status: Chronic Plan: Creatinine stable at 1.4 (3) DVT (deep venous thrombosis) Status: Acute Plan: Patient has a known left femoral DVT prior to admission. He was started on xarelto for anticoagulation on March 29 Hold xarelto given GI bleed as above. Hematology has been consulted- he meets criteria for vena cava filter placement. Currently, he is unable to make a decision regarding this. Supportive therapy with vitamin K. Transfusion therapy for hemoglobin less than 8. Interventional radiology has been consult to discuss risks/benefits of IVC filter placement with the patient so he can make a better informed decision. (4) FEN/PPX Status: Acute Plan: Fluids: Normal saline at 125 ML per hour Electrolytes: Monitor and replace when necessary Nutrition: Clear liquid diet per GI Prophylaxis: Bilateral SCDs. Hold xarelto Chronic medical conditions: Chronic myeloproliferative disorder-continue hydroxyurea Hyperlipidemia: Continue Zocor (Ty Ramirez MD R2) Problem List: (1) GI bleed Status: Acute Plan: Gastroenterology and hematology have been consult given the patient's history of DVT and new onset GI bleed. Hemoglobin stable -EGD on 04/21 was normal. -Colonoscopy planned for 04/23 -Pending colonoscopy results, patient may need capsule endoscopy as outpatient -Protonix 40 mg IV daily. -Lactated Ringer's at 125 ml per hour See DVT below for hematology recommendations. (2) Chronic Renal Failure / insufficiency, unspec Status: Chronic Plan: Creatinine stable at 1.4 (3) DVT (deep venous thrombosis) Status: Acute Plan: Patient has a known left femoral DVT prior to admission. He was started on xarelto for anticoagulation on March 29 Hold xarelto given GI bleed as above. Hematology has been consulted- he meets criteria for vena cava filter placement. Currently, he is unable to make a decision regarding this. Supportive therapy with vitamin K. Transfusion therapy for hemoglobin less than 8. Interventional radiology has been consult to discuss risks/benefits of IVC filter placement with the patient so he can make a better informed decision. (4) FEN/PPX Status: Acute Plan: Fluids: Normal saline at 125 ML per hour Electrolytes: Monitor and replace when necessary Nutrition: Clear liquid diet per GI Prophylaxis: Bilateral SCDs. Hold xarelto Chronic medical conditions: Chronic myeloproliferative disorder-continue hydroxyurea Hyperlipidemia: Continue Zocor (Rosi Ramirez MD) Problem Qualifiers (1) GI bleed: Qualified Code: K92.1 - Gastrointestinal hemorrhage with melena (2) DVT (deep venous thrombosis): Qualified Code: I82.412 - Acute deep vein thrombosis (DVT) of femoral vein of left lower extremity Ty Ramirez MD R2 Apr 22, 2016 09:01 Rosi Ramirez MD Apr 22, 2016 13:35
[2016-04-22 09:47] VITALS: BP 132/56; PULSE 52; RESP 16; TEMP 96; O2SAT 94
[2016-04-22 13:27] VITALS: BP 133/52; PULSE 74; RESP 16; TEMP 96.6; O2SAT 93
[2016-04-22] MEDS ORDERED: PEG (High)/E-LYTE SOLN 4000 ML BTL PO ONE (15:00)
--- NOTE | 2016-04-22 15:34 | PD.ONC.PN ---
Subjective Subjective Remarks BM no longer as dark or black. Denies any other bleeding. Anticipating prep for colonoscopy. Objective Data Date Time Temp Pulse Resp B/P Pulse Ox O2 Delivery O2 Flow Rate FiO2 04/22/16 13:27 96.6 74 16 133/52 93 04/22/16 09:47 96.0 52 16 132/56 94 04/22/16 00:00 96.7 72 16 119/58 97 04/21/16 20:00 97.0 67 16 153/67 96 04/21/16 18:05 98 Nasal Cannula 2.00 04/21/16 16:20 97.7 84 100 Nasal Cannula 2 04/21/16 16:15 70 12 118/50 99 Nasal Cannula 2 04/21/16 16:04 97.7 87 12 100/57 98 Nasal Cannula 2 04/21/16 16:00 96.0 80 16 147/59 100 04/22/16 04/22/16 04/22/16 07:00 15:00 23:00 Intake Total 480 ml Output Total 350 ml Balance 130 ml Result Diagram: 04/22/16 0508 04/21/16 0512 Laboratory Results Laboratory Tests Test 04/22/16 05:08 White Blood Count 6.7 TH/MM3 Red Blood Count 2.32 MIL/MM3 Hemoglobin 9.0 GM/DL Hematocrit 25.6 % Mean Corpuscular Volume 110.3 FL Mean Corpuscular Hemoglobin 38.8 PG Mean Corpuscular Hemoglobin 35.2 % Concent Red Cell Distribution Width 13.4 % Platelet Count 185 TH/MM3 Mean Platelet Volume 7.7 FL Neutrophils (%) (Auto) 58.3 % Lymphocytes (%) (Auto) 27.0 % Monocytes (%) (Auto) 9.6 % Eosinophils (%) (Auto) 4.0 % Basophils (%) (Auto) 1.1 % Neutrophils # (Auto) 3.9 TH/MM3 Lymphocytes # (Auto) 1.8 TH/MM3 Monocytes # (Auto) 0.6 TH/MM3 Eosinophils # (Auto) 0.3 TH/MM3 Basophils # (Auto) 0.1 TH/MM3 CBC Comment DIFF FINAL Differential Comment Prothrombin Time 11.9 SEC Prothromb Time International 1.1 RATIO Ratio Activated Partial 27.8 SEC Thromboplast Time Fibrinogen 214 mg/dL Administered Medications Medications (Trade) Dose Ordered Sig/Radha Route PRN Reason Start Time Stop Time Status Last Admin Dose Admin Hydralazine HCl (Apresoline) 10 mg Q6H PRN PO SBP>160, DBP>90 04/20/16 20:30 04/21/16 00:12 Hydroxyurea (Hydrea) 500 mg DAILY PO 04/21/16 09:00 04/22/16 08:06 Pravastatin Sodium 80 mg 80 mg HS PO 04/20/16 21:00 04/21/16 21:19 Lactated Ringer's (Lr 1000 ml Inj) 1,000 ml @ 125 mls/hr Q8H IV 04/21/16 08:30 04/22/16 00:54 Phytonadione (Mephyton) 5 mg DAILY PO 04/21/16 14:00 04/24/16 13:59 04/22/16 08:02 Objective Remarks GENERAL: Elderly man, with mild stuttering, well-developed patient. SKIN: Warm and dry. HEAD: Normocephalic. EYES: No scleral icterus. No injection or drainage. NECK: Supple, trachea midline. No JVD or lymphadenopathy. LYMPHATIC: No adenopathy. CARDIOVASCULAR: Regular rate and rhythm without murmurs. RESPIRATORY: Breath sounds equal bilaterally. No accessory muscle use. GASTROINTESTINAL: Abdomen soft, non-tender, nondistended. EXTREMITIES: Mild asymmetry L leg more prominent. MUSCULOSKELETAL: Adequate muscle tone. NEUROLOGICAL: No obvious focal deficit. Awake, alert, and oriented x3. PSYCHIATRIC: Appropriate mood and affect; insight and judgment normal. Assessment/Plan Problem List: (1) DVT (deep venous thrombosis) Status: Acute Plan: Extensive LLE DVT. s/p 3 weeks Xarelto, repeat US show response no longer occlusive. Contraindication to anticoagulation- GI bleeding. Xarelto stopped- possible lingering effect of anticoagulation with prolong PT despite stopping Xarelto- last dose Saturday s/p Vitamin K Pt less inclined to consider the IVC filter. Maybe able to avoid IVC filter since bleeding stopped, L leg clot improved. Anticipate being able to resume anticoagulation tomorrow after GI procedure. Discussed the risks. Pt discussed w/ primary. Trial prophylactic dose of LMWH tomorrow after GI procedure. (2) GI bleed Status: Acute Plan: Resolving. Endoscopy pending to determine source, anemia second to GI bleed. (3) Anemia Status: Acute Plan: Mild B12 deficiency s/p empiric treatment. Anemia due to GI bleed, hgb decrease to 9.0 but no transfusion for now. Follow hgb. Bleeding appear to be resolving. (4) Chronic myeloproliferative disorder (clinical) Status: Chronic Plan: Long h/o OLIVER II positive CMPD, essential thrombocytosis. Platelet controlled on HU, continue HU, monitor platelets. Assessment 86 y/o man with OLIVER II positive CMPD, platelet count controlled on HU 500mg daily, course complicated by LLE DVT and GI bleed on Xarelto. Holding Xarelto. Plan 1. Cont HU 2. Monitor CBC 3. Start Lovenox 40mg tomorrow. Problem Qualifiers (1) DVT (deep venous thrombosis): Qualified Code: I82.412 - Acute deep vein thrombosis (DVT) of femoral vein of left lower extremity (2) GI bleed: Qualified Code: K92.1 - Gastrointestinal hemorrhage with melena Keyona Dawn MD Apr 22, 2016 15:34
[2016-04-22 16:00] VITALS: BP 169/69; PULSE 74; RESP 16; TEMP 96.6; O2SAT 96
[2016-04-22 18:28] VITALS: O2SAT 93
[2016-04-22 20:03] VITALS: BP 167/71; PULSE 81; RESP 17; TEMP 97; O2SAT 97
[2016-04-22] MEDS: PRAVASTATIN SOD 80 MG TAB PO SCH (21:26)
[2016-04-23 00:01] VITALS: BP 119/64; PULSE 65; RESP 16; TEMP 96.2; O2SAT 95
[2016-04-23] MEDS: LACTATED RINGER'S 1000 ML INJ 1,000 ML IV SCH ×4 (00:22→23:52)
[2016-04-23 04:02] VITALS: BP 151/77; PULSE 80; RESP 16; TEMP 96.1; O2SAT 98
[2016-04-23 06:21] LABS: AUTOMATED NEUTROPHIL # 4.1 TH/MM3 (1.8-7.7); BASOPHIL # 0.1 TH/MM3 (0-0.2); BASOPHIL % 0.9 % (0.0-2.0); EOSINOPHIL # 0.2 TH/MM3 (0-0.4); EOSINOPHIL % 3.4 % (0.0-4.0); HEMATOCRIT 26.5 % (39.0-51.0); HEMO FLAGS DIFF FINAL; LYMPH % 23.4 % (9.0-44.0); LYMPHOCYTE # 1.6 TH/MM3 (1.0-4.8); MEAN CELL VOLUME 109.8 FL (80.0-100.0); MEAN CORPUSCULAR HEMOGLOBIN 38.4 PG (27.0-34.0); MEAN CORPUSCULAR HGB CONC 34.9 % (32.0-36.0); NEUT % 61.3 % (16.0-70.0); PLATELET COUNT 189 TH/MM3 (150-450); RED BLOOD COUNT 2.41 MIL/MM3 (4.50-5.90); RED CELL DISTRIBUTION WIDTH 13.7 % (11.6-17.2); WHITE BLOOD COUNT 6.7 TH/MM3 (4.0-11.0)
[2016-04-23 06:39] LABS: BICARBONATE 27.4 MEQ/L (21.0-32.0); POTASSIUM 3.6 MEQ/L (3.5-5.1)
[2016-04-23 08:00] VITALS: BP 148/65; PULSE 67; RESP 18; TEMP 96.4; O2SAT 96
[2016-04-23] MEDS: PHYTONADIONE 5 MG TAB PO SCH (09:00)
[2016-04-23] MEDS: HYDROXYUREA 500 MG CAP PO SCH (09:00)
[2016-04-23] MEDS: PANTOPRAZOLE SODIUM 40 MG VIAL IV PUSH SCH (09:25)
[2016-04-23 09:30] VITALS: O2SAT 96
--- NOTE | 2016-04-23 11:05 | HHI.FPPN ---
Subjective Remarks ALBINO overnight. AF. Mild HTN to 165/70. Breathing well on RA. C/o yellow watery stool this AM after taking Stephie prep yesterday. Anticipating colonoscopy today so he can eat something. Denies BRBPR or tarry stools. 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 OOB to bedside commode w/o difficulty. Denies f/c, RYAN/SOB, CP/palp, abd pain. (Swathi Cody MD R1) Objective Vitals Vital Signs Date Time Temp Pulse Resp B/P Pulse Ox O2 Delivery O2 Flow Rate FiO2 04/23/16 09:30 96 21 04/23/16 08:00 96.4 67 18 148/65 96 04/23/16 04:02 96.1 80 16 151/77 98 04/23/16 00:01 96.2 65 16 119/64 95 04/22/16 20:03 97.0 81 17 167/71 97 04/22/16 18:28 93 21 04/22/16 16:00 96.6 74 16 169/69 96 04/22/16 13:27 96.6 74 16 133/52 93 I/O 04/22/16 04/22/16 04/22/16 04/23/16 04/23/16 04/23/16 07:00 15:00 23:00 07:00 15:00 23:00 Intake Total 480 ml 3000 ml 360 ml Output Total 350 ml 500 ml Balance 130 ml 2500 ml 360 ml Intake Oral 480 ml 3000 ml 360 ml Output Urine Total 350 ml 500 ml # Voids 4 3 # Bowel Movements 6 3 (Swathi Cody MD R1) Result Diagram: 04/23/16 0547 04/23/16 0547 Imaging Last Impressions Lower Extremity Ultrasound 04/21/16 0000 Signed Impressions: Service Date/Time: Thursday, April 21, 2016 16:59 - CONCLUSION: Nonocclusive thrombus in the superficial femoral vein proximal to distal. Sravan Lopez MD Objective Remarks CONST: Elderly male, sitting up in bed in [facility]. DERM: color normal, no rashes noted. HEENT: Mouth and pharynx normal. Mucous membranes a little dry. CV: RR without murmur or gallop. No significant edema. RESP: Clear A-P, respiratory effort is normal. ABD: soft without masses, without organomegaly. NTTP +BS HEME: no bruising, petechia or significant adenopathy MUSC: SCDs in place on lower extremities. Left leg increased circumference secondary to known DVT. NEURO: AAO x3. Gross motor or sensation function intact PSYCH: Appropriate affect. Procedures 04/21/15: Panendoscopy (Dr. Dwyer) 04/23/15: Colonoscopy (Swathi Cody MD R1) A/P Assessment and Plan 86-year-old male admitted for GI bleed. Hemoccult positive. GI consult. Discharge Planning Days, pending results of colonoscopy 04/23/15 and recommendations from GI, hematology, interventional radiology. (Swathi Cody MD R1) Attending Attestation Patient seen and examined. Case reviewed and discussed with the resident team. Agree with plan of care as discussed with me and documented in the resident note. (Rosi Ramirez MD) Problem List: (1) GI bleed Status: Resolved Plan: Impression: 86y recently diagnosed with LLE DVT, started on Xarelto 3 weeks ago. Presented with acute GI bleed- one day black tarry stools and postive hemoccult. Denies abd pain, sycope, dizziness. No history of endoscopy to his knowledge. FHx colon cancer. GI and hematology consulted. -EGD 04/21 normal -Continue monitor Hgb daily CBCs, currently stable -Colonoscopy planned 04/23. Pending results, patient may need capsule endoscopy as outpatient -Protonix 40 mg IV daily -See DVT below for hematology recommendations (2) DVT (deep venous thrombosis) Status: Acute Plan: Patient has a known left femoral DVT prior to admission. He was started on xarelto for anticoagulation on March 29 Hold xarelto given GI bleed as above. Hematology has been consulted- he meets criteria for vena cava filter placement. Currently, he is unable to make a decision regarding this. Supportive therapy with vitamin K. Transfusion therapy for hemoglobin less than 8. Interventional radiology has been consult to discuss risks/benefits of IVC filter placement with the patient so he can make a better informed decision. (3) Chronic Renal Failure / insufficiency, unspec Status: Chronic Plan: Baseline Cr 1.5-1.6. No acute injury on admission. -Daily BMP, continue to monitor, avoid nephrotoxic agents (4) FEN/PPX Status: Acute Plan: Fluids: Per PO Electrolytes: Monitor and replace when necessary Nutrition: NPO until colonoscopy, then advance diet as tolerated to renal diet Prophylaxis: Bilateral SCDs. Hold Xarelto. Start Lovenox 40mg subcutaneous daily after colonoscopy, monitor H/H Pain: Tylenol PRN Chronic medical conditions: Chronic myeloproliferative disorder- continue home hydroxyurea 500mg daily HLD: Continue statin- pravastatin 80mg HS SDW: Mae Knutson MS4 (Swathi Cody MD R1) Problem Qualifiers (1) GI bleed: Qualified Code: K92.1 - Gastrointestinal hemorrhage with melena (2) DVT (deep venous thrombosis): Qualified Code: I82.412 - Acute deep vein thrombosis (DVT) of femoral vein of left lower extremity Swathi Cody MD R1 Apr 23, 2016 11:05 Rosi Ramirez MD Apr 24, 2016 15:48
--- NOTE | 2016-04-23 11:51 | PD.ONC.PN ---
Subjective Subjective Remarks Afebrile overnight. Pt states he did OK with the EGD prep. He denies any blood in the stool and states it was a "bright yellow." He denies SOB or pain. Objective Data Date Time Temp Pulse Resp B/P Pulse Ox O2 Delivery O2 Flow Rate FiO2 04/23/16 09:30 96 21 04/23/16 08:00 96.4 67 18 148/65 96 04/23/16 04:02 96.1 80 16 151/77 98 04/23/16 00:01 96.2 65 16 119/64 95 04/22/16 20:03 97.0 81 17 167/71 97 04/22/16 18:28 93 21 04/22/16 16:00 96.6 74 16 169/69 96 04/22/16 13:27 96.6 74 16 133/52 93 04/23/16 04/23/16 04/23/16 07:00 15:00 23:00 Intake Total 360 ml Balance 360 ml Result Diagram: 04/23/16 0547 04/23/16 0547 Laboratory Results Laboratory Tests Test 04/23/16 05:47 White Blood Count 6.7 TH/MM3 Red Blood Count 2.41 MIL/MM3 Hemoglobin 9.2 GM/DL Hematocrit 26.5 % Mean Corpuscular Volume 109.8 FL Mean Corpuscular Hemoglobin 38.4 PG Mean Corpuscular Hemoglobin 34.9 % Concent Red Cell Distribution Width 13.7 % Platelet Count 189 TH/MM3 Mean Platelet Volume 7.6 FL Neutrophils (%) (Auto) 61.3 % Lymphocytes (%) (Auto) 23.4 % Monocytes (%) (Auto) 11.0 % Eosinophils (%) (Auto) 3.4 % Basophils (%) (Auto) 0.9 % Neutrophils # (Auto) 4.1 TH/MM3 Lymphocytes # (Auto) 1.6 TH/MM3 Monocytes # (Auto) 0.7 TH/MM3 Eosinophils # (Auto) 0.2 TH/MM3 Basophils # (Auto) 0.1 TH/MM3 CBC Comment DIFF FINAL Differential Comment Sodium Level 147 MEQ/L Potassium Level 3.6 MEQ/L Chloride Level 111 MEQ/L Carbon Dioxide Level 27.4 MEQ/L Anion Gap 9 MEQ/L Blood Urea Nitrogen 14 MG/DL Creatinine 1.42 MG/DL Estimat Glomerular Filtration 47 ML/MIN Rate Random Glucose 96 MG/DL Calcium Level 8.2 MG/DL Administered Medications Medications (Trade) Dose Ordered Sig/Radha Route PRN Reason Start Time Stop Time Status Last Admin Dose Admin Hydralazine HCl (Apresoline) 10 mg Q6H PRN PO SBP>160, DBP>90 04/20/16 20:30 04/21/16 00:12 Hydroxyurea (Hydrea) 500 mg DAILY PO 04/21/16 09:00 04/22/16 08:06 Pravastatin Sodium 80 mg 80 mg HS PO 04/20/16 21:00 04/22/16 21:26 Lactated Ringer's (Lr 1000 ml Inj) 1,000 ml @ 125 mls/hr Q8H IV 04/21/16 08:30 04/22/16 00:54 Phytonadione (Mephyton) 5 mg DAILY PO 04/21/16 14:00 04/24/16 13:59 04/22/16 08:02 Pantoprazole Sodium (Protonix Inj) 40 mg Q24H IV PUSH 04/22/16 09:00 04/23/16 09:25 Objective Remarks GENERAL: Older male, lying in bed in no distress. SKIN: Warm and dry. HEAD: Normocephalic. EYES: No injection or drainage. NECK: Supple, trachea midline. CARDIOVASCULAR: +S1/S2. RESPIRATORY: Lungs clear throughout. GASTROINTESTINAL: +BS. Non-tender, non-distended. EXTREMITIES: No cyanosis, or edema. NEUROLOGICAL: No obvious focal deficit. Awake, alert, and oriented x3. Assessment/Plan Problem List: (1) DVT (deep venous thrombosis) Status: Acute Plan: 04/23/16: Will order a prophylactic dose of Lovenox today after colonoscopy. Extensive LLE DVT. s/p 3 weeks Xarelto, repeat US show response no longer occlusive. Contraindication to anticoagulation- GI bleeding. Xarelto stopped- possible lingering effect of anticoagulation with prolong PT despite stopping Xarelto- last dose Saturday s/p Vitamin K Pt less inclined to consider the IVC filter. Maybe able to avoid IVC filter since bleeding stopped, L leg clot improved. (2) GI bleed Status: Acute Plan: --Resolved. --EGD today (04/23/16) to determine source, anemia second to GI bleed. (3) Anemia Status: Acute Plan: --Mild B12 deficiency s/p empiric treatment. --Anemia due to GI bleed, hgb decrease to 9.2 but no transfusion for now. --Follow hgb. --Bleeding appear to be resolving. (4) Chronic myeloproliferative disorder (clinical) Status: Chronic Plan: --Long h/o OLIVER II positive CMPD, essential thrombocytosis. --Platelet controlled on HU, continue HU, monitor platelets. Assessment 86 y/o man with OLIVER II positive CMPD, platelet count controlled on HU 500mg daily, course complicated by LLE DVT and GI bleed on Xarelto. Holding Xarelto. Plan 1. Trial prophylactic dose of Lovenox today after EGD. 2. Monitor CBC; platelets remain under control with Hydroxyurea. 3. Monitor for bleeding. 3. Supportive care. Attending Statement The exam, history, and the medical decision-making described in the above note were completed with the assistance of the mid-level provider. I reviewed and agree with the findings presented. I attest that I had a [id number] encounter with the patient on the same day, and personally performed and documented my assessment and findings in the medical record. Await colonoscopy. No further melena. EGD showed esophagitis but no active bleeding. Hgb stable. He has hypercoagulable state due to CMPD and he had recent DVT. He needs to be on anticoagulation once clear by GI. Continue lovenox prophylactic dose for now. Can try pradaxa or coumadin once GI bleeding resolved. Problem Qualifiers (1) DVT (deep venous thrombosis): Qualified Code: I82.412 - Acute deep vein thrombosis (DVT) of femoral vein of left lower extremity (2) GI bleed: Qualified Code: K92.1 - Gastrointestinal hemorrhage with melena Halima Garcia Apr 23, 2016 11:51 Lenny Caldera MD Apr 23, 2016 15:58
[2016-04-23] MEDS ORDERED: PROPOFOL 200 MG/20 ML AMP IV ONE (11:56)
[2016-04-23] MEDS ORDERED: SIMETHICONE SUSP DROPS 40 MG/0.6 ML 30 ML BTL ONE (11:59)
--- NOTE | 2016-04-23 12:32 | PD.PROCEDR ---
GI Procedure REFERRING PHYSICIAN Dr. Ramirez PROCEDURE PERFORMED Colonoscopy with snare polypectomy and biopsy polypectomy INDICATION FOR PROCEDURE GI bleed PROCEDURE: The procedure, risks and benefits were discussed with Mr. Bhat and informed consent was obtained. Anesthesia sedated him with Diprivan. He was placed in the left lateral decubitus position. Colonoscopy: The Pentax videoscope was introduced through the rectum and advanced to cecum where the ileocecal valve and appendiceal orifice were identified. Retroflexion was performed in the rectum. Colonic prep was good FINDINGS: Colonic withdrawal time greater than 6 minutes as the scope was slowly withdrawn colonic mucosa was carefully inspected this not to be unremarkable except for 6 polyps noted one in the cecum and 2 in the ascending and 3 in the proximal transverse colon all were sessile adenomatous ranged from small-to- medium all were excised using cold snare technique except for 21 in the ascending and the other in the transverse colon that were excised using biopsy forceps the excision was complete for all polyps and they were retrieved for further evaluation the patient was also noted to have mild diverticulosis of the sigmoid region retroflexion was unremarkable cells rectal examination otherwise colonic examination was unremarkable ESTIMATED BLOOD LOSS: None SPECIMENS REMOVED: Colonic polyps COMPLICATIONS: None IMPRESSION: Colon polyps Diverticulosis PLAN: Await biopsy Resume diet Continue supportive care Recommend colonoscopy in 3-5 years Nikolas Ayala MD Apr 23, 2016 12:32
[2016-04-23] MEDS ORDERED: ENOXAPARIN SODIUM 40 MG/0.4 ML SYRINGE SQ SCH (15:00)
[2016-04-23 16:00] VITALS: BP 138/70; PULSE 70; RESP 18; TEMP 97.2; O2SAT 96
[2016-04-23 20:00] VITALS: BP 148/65; PULSE 64; RESP 16; TEMP 98.3; O2SAT 93
[2016-04-23] MEDS: PRAVASTATIN SOD 80 MG TAB PO SCH (21:17)
[2016-04-24] VITALS: BP 149/64; PULSE 76; RESP 16; TEMP 97.2; O2SAT 93
[2016-04-24 06:11] LABS: AUTOMATED NEUTROPHIL # 3.9 TH/MM3 (1.8-7.7); BASOPHIL # 0.1 TH/MM3 (0-0.2); BASOPHIL % 0.9 % (0.0-2.0); EOSINOPHIL # 0.3 TH/MM3 (0-0.4); EOSINOPHIL % 4.7 % (0.0-4.0); HEMO FLAGS DIFF FINAL; LYMPHOCYTE # 1.6 TH/MM3 (1.0-4.8); MEAN CELL VOLUME 110.6 FL (80.0-100.0); MEAN CORPUSCULAR HEMOGLOBIN 38.3 PG (27.0-34.0); MEAN CORPUSCULAR HGB CONC 34.6 % (32.0-36.0); MONO % 10.4 % (0.0-8.0); PLATELET COUNT 177 TH/MM3 (150-450); RED BLOOD COUNT 2.35 MIL/MM3 (4.50-5.90); RED CELL DISTRIBUTION WIDTH 13.6 % (11.6-17.2); WHITE BLOOD COUNT 6.6 TH/MM3 (4.0-11.0)
[2016-04-24 06:33] LABS: ALKALINE PHOSPHATASE 43 U/L (45-117); ALT (GPT) 12 U/L (12-78); ANION GAP 7 MEQ/L (5-15); AST (GOT) 14 U/L (15-37); BICARBONATE 27.6 MEQ/L (21.0-32.0); BLOOD UREA NITROGEN 13 MG/DL (7-18); CHLORIDE 108 MEQ/L (98-107); GLOMERULAR FILTRATION RATE 45 ML/MIN (>89); POTASSIUM 3.5 MEQ/L (3.5-5.1); SODIUM (NA) 143 MEQ/L (136-145); TOTAL BILIRUBIN ADULT 0.7 MG/DL (0.2-1.0)
[2016-04-24 08:00] VITALS: BP 138/61; PULSE 64; RESP 16; TEMP 97.1; O2SAT 97
--- NOTE | 2016-04-24 08:23 | HHI.FPPN ---
Subjective Remarks No acute issues overnight. Vitals are stable, patient remained afebrile. He fells well this morning. He denies any chest pain, shortness of breath, fever, chills, abdominal pain, leg pain, nausea, or vomiting. He is tolerating by mouth. He states that he has not had a good bowel movement, but attributes this to not really having eaten solid food in the last couple days. Objective Vitals Vital Signs Date Time Temp Pulse Resp B/P Pulse Ox O2 Delivery O2 Flow Rate FiO2 04/24/16 00:00 97.2 76 16 149/64 93 04/23/16 20:00 98.3 64 16 148/65 93 04/23/16 16:00 97.2 70 18 138/70 96 04/23/16 12:52 65 16 136/58 96 04/23/16 12:42 59 16 103/49 95 04/23/16 12:32 97.6 69 15 108/50 97 04/23/16 09:30 96 21 04/23/16 09:20 Room Air I/O 04/23/16 04/23/16 04/23/16 04/24/16 04/24/16 04/24/16 07:00 15:00 23:00 07:00 15:00 23:00 Intake Total 360 ml 400 ml 240 ml 100 ml Balance 360 ml 400 ml 240 ml 100 ml Intake Oral 360 ml 240 ml 100 ml Other 400 ml # Voids 3 1 0 # Bowel Movements 3 1 0 Result Diagram: 04/24/16 0530 04/24/16 0530 Imaging Last Impressions Lower Extremity Ultrasound 04/21/16 0000 Signed Impressions: Service Date/Time: Thursday, April 21, 2016 16:59 - CONCLUSION: Nonocclusive thrombus in the superficial femoral vein proximal to distal. Sravan Lopez MD Objective Remarks CONST: Elderly male, lying in bed comfortably, in NAD. DERM: Warm and dry. No rashes or lesions. HEENT: Mouth and pharynx normal. Moist mucous membranes. CV: RR without murmur or gallop. No significant edema. RESP: Regular respiratory effort. Clear to auscultation bilaterally. No wheezes or rales. ABD: soft, nontender, nondistended without masses, without organomegaly. Bowel sounds present and active. HEME: no bruising, petechia or adenopathy MUSC: SCDs in place on lower extremities. Left leg increased circumference secondary to known DVT. NEURO: AAO x3. Gross motor or sensation function intact PSYCH: Appropriate affect. Procedures 04/21/15: Panendoscopy (Dr. Dwyer) 04/23/15: Colonoscopy A/P Assessment and Plan 86-year-old male admitted for GI bleed. Discharge Planning Anticipate discharge in the next 12 days pending tolerance of anticoagulation. Problem List: (1) GI bleed Status: Resolved Plan: Impression: 86y recently diagnosed with LLE DVT, started on Xarelto 3 weeks ago. Presented with acute GI bleed- one day black tarry stools and positive hemoccult. -GI consulted * EGD 04/21 normal * Colonoscopy 04/23 significant for colonic polyps and diverticulosis. * GI recommends supportive care, repeat colonoscopy in 35 years. -Hgb stable at 9.0 today -Patient may need capsule endoscopy as outpatient -Protonix 40 mg PO daily -See DVT below for hematology recommendations (2) DVT (deep venous thrombosis) Status: Acute Plan: Patient has a known left femoral DVT prior to admission. He was started on Xarelto for anticoagulation on March 29 Hold Xarelto given GI bleed as above. Hematology consulted- * Transfusion therapy for hemoglobin less than 8. * Trial of Lovenox 40 mg SQ every 24 hours * May initiate Pradaxa once GI has cleared patient for anticoagulation. (3) Chronic Renal Failure / insufficiency, unspec Status: Chronic Plan: Baseline Cr 1.5-1.6. No acute injury on admission. -Daily BMP, continue to monitor, avoid nephrotoxic agents (4) FEN/PPX Status: Acute Plan: Fluids: None Electrolytes: Monitor and replace when necessary Nutrition: Heart Healthy Diet Prophylaxis: Bilateral SCDs. Lovenox 40mg SQ Q12H. Chronic medical conditions: Chronic myeloproliferative disorder- continue home hydroxyurea 500mg daily HLD: Continue statin- pravastatin 80mg HS dw Dr. Freeman and Dr. Cody Problem Qualifiers (1) GI bleed: Qualified Code: K92.1 - Gastrointestinal hemorrhage with melena (2) DVT (deep venous thrombosis): Qualified Code: I82.412 - Acute deep vein thrombosis (DVT) of femoral vein of left lower extremity Kadi Mcdonald MD R2 Apr 24, 2016 08:23
--- NOTE | 2016-04-24 09:26 | PD.ONC.PN ---
Subjective Subjective Remarks Afebrile overnight. Patient resting comfortably without complaint. He denies bleeding. Objective Data Date Time Temp Pulse Resp B/P Pulse Ox O2 Delivery O2 Flow Rate FiO2 04/24/16 08:00 97.1 64 16 138/61 97 04/24/16 00:00 97.2 76 16 149/64 93 04/23/16 20:00 98.3 64 16 148/65 93 04/23/16 16:00 97.2 70 18 138/70 96 04/23/16 12:52 65 16 136/58 96 04/23/16 12:42 59 16 103/49 95 04/23/16 12:32 97.6 69 15 108/50 97 04/23/16 09:30 96 21 04/24/16 04/24/16 04/24/16 07:00 15:00 23:00 Intake Total 100 ml Balance 100 ml Result Diagram: 04/24/16 0530 04/24/16 0530 Laboratory Results Laboratory Tests Test 04/24/16 05:30 White Blood Count 6.6 TH/MM3 Red Blood Count 2.35 MIL/MM3 Hemoglobin 9.0 GM/DL Hematocrit 26.0 % Mean Corpuscular Volume 110.6 FL Mean Corpuscular Hemoglobin 38.3 PG Mean Corpuscular Hemoglobin 34.6 % Concent Red Cell Distribution Width 13.6 % Platelet Count 177 TH/MM3 Mean Platelet Volume 7.6 FL Neutrophils (%) (Auto) 59.0 % Lymphocytes (%) (Auto) 25.0 % Monocytes (%) (Auto) 10.4 % Eosinophils (%) (Auto) 4.7 % Basophils (%) (Auto) 0.9 % Neutrophils # (Auto) 3.9 TH/MM3 Lymphocytes # (Auto) 1.6 TH/MM3 Monocytes # (Auto) 0.7 TH/MM3 Eosinophils # (Auto) 0.3 TH/MM3 Basophils # (Auto) 0.1 TH/MM3 CBC Comment DIFF FINAL Differential Comment Sodium Level 143 MEQ/L Potassium Level 3.5 MEQ/L Chloride Level 108 MEQ/L Carbon Dioxide Level 27.6 MEQ/L Anion Gap 7 MEQ/L Blood Urea Nitrogen 13 MG/DL Creatinine 1.49 MG/DL Estimat Glomerular Filtration 45 ML/MIN Rate Random Glucose 90 MG/DL Calcium Level 8.1 MG/DL Total Bilirubin 0.7 MG/DL Aspartate Amino Transf 14 U/L (AST/SGOT) Alanine Aminotransferase 12 U/L (ALT/SGPT) Alkaline Phosphatase 43 U/L Total Protein 5.3 GM/DL Albumin 2.5 GM/DL Administered Medications Medications (Trade) Dose Ordered Sig/Radha Route PRN Reason Start Time Stop Time Status Last Admin Dose Admin Hydralazine HCl (Apresoline) 10 mg Q6H PRN PO SBP>160, DBP>90 04/20/16 20:30 04/21/16 00:12 Hydroxyurea (Hydrea) 500 mg DAILY PO 04/21/16 09:00 04/22/16 08:06 Pravastatin Sodium (Pravachol) 80 mg HS PO 04/20/16 21:00 04/23/16 21:17 Enoxaparin Sodium (Lovenox Inj) 40 mg Q24H SQ 04/23/16 15:00 04/23/16 15:08 Objective Remarks GENERAL: Elderly male, sitting up in bed in [facility]. SKIN: Warm and dry. HEAD: Normocephalic. EYES: No injection or drainage. NECK: Supple, trachea midline. CARDIOVASCULAR: +S1/S2 RESPIRATORY: Breath sounds equal bilaterally. No accessory muscle use. GASTROINTESTINAL: Abdomen soft, non-tender, nondistended. EXTREMITIES: No cyanosis NEUROLOGICAL: No obvious focal deficit. Awake, alert, and oriented x3. Assessment/Plan Problem List: (1) DVT (deep venous thrombosis) Status: Acute Plan: 04/24/16: start pradaxa at 75mg bid dose 04/23/16: prophylactic dose of Lovenox given s/p colonoscopy. Extensive LLE DVT. s/p 3 weeks Xarelto, repeat US show response no longer occlusive. Contraindication to anticoagulation- GI bleeding. Xarelto stopped- possible lingering effect of anticoagulation with prolong PT despite stopping Xarelto- last dose Saturday s/p Vitamin K Pt less inclined to consider the IVC filter. Maybe able to avoid IVC filter since bleeding stopped, L leg clot improved. (2) GI bleed Status: Resolved Plan: --Resolved. --EGD (04/23/16) showed colon polyps and diverticulosis (3) Anemia Status: Acute Plan: --Mild B12 deficiency s/p empiric treatment. --Follow hgb. --Bleeding appear to be resolving. (4) Chronic myeloproliferative disorder (clinical) Status: Chronic Plan: --Long h/o OLIVER II positive CMPD, essential thrombocytosis. --Platelet controlled on HU, continue HU, monitor platelets. Assessment 86 y/o man with OLIVER II positive CMPD, platelet count controlled on HU 500mg daily, course complicated by LLE DVT and GI bleed on Xarelto. Holding Xarelto. Plan 1. monitor CBC 2. continue prophylactic dose Lovenox 3. start Pradaxa this evening. Attending Statement The exam, history, and the medical decision-making described in the above note were completed with the assistance of the mid-level provider. I reviewed and agree with the findings presented. I attest that I had a [id number] encounter with the patient on the same day, and personally performed and documented my assessment and findings in the medical record. Feels better. No more melena. Hgb is stable. No LE edema. EGD/colonoscopy showed no active bleeding. Extensive discussion with patient regarding the need for anticoagulation due to hypercoagulable state, however, he has high risk of developing recurring GI bleeding. I think the benefit of anticoagulation outweigh the risk. Pt agrees with plan and I will start him on low dose pradaxa which has an antidote if he ever have bleeding complication again. Problem Qualifiers (1) DVT (deep venous thrombosis): Qualified Code: I82.412 - Acute deep vein thrombosis (DVT) of femoral vein of left lower extremity (2) GI bleed: Qualified Code: K92.1 - Gastrointestinal hemorrhage with melena Olga Tucker Apr 24, 2016 09:25 Lenny Caldera MD Apr 24, 2016 16:06
[2016-04-24] MEDS: HYDROXYUREA 500 MG CAP PO SCH (09:38)
[2016-04-24 12:07] VITALS: O2SAT 98
[2016-04-24 12:30] VITALS: BP 130/74; PULSE 68; RESP 18; TEMP 97.2; O2SAT 98
[2016-04-24 16:00] VITALS: BP 157/69; PULSE 67; RESP 16; TEMP 97.4; O2SAT 96
--- NOTE | 2016-04-24 17:58 | HHI.GIFU ---
Subjective Remarks Up in chair. No n/v/abdominal pain. No obvious active bleeding. Tolerating diet. (Tricia Garcia) Objective Vitals I&O Vital Signs Date Time Temp Pulse Resp B/P Pulse Ox O2 Delivery O2 Flow Rate FiO2 04/24/16 16:00 97.4 67 16 157/69 96 04/24/16 12:30 97.2 68 18 130/74 98 04/24/16 12:07 98 21 04/24/16 09:30 Room Air 04/24/16 08:00 97.1 64 16 138/61 97 04/24/16 00:00 97.2 76 16 149/64 93 04/23/16 20:00 98.3 64 16 148/65 93 I/O 04/23/16 04/23/16 04/23/16 04/24/16 04/24/16 04/24/16 07:00 15:00 23:00 07:00 15:00 23:00 Intake Total 360 ml 400 ml 240 ml 100 ml 580 ml Balance 360 ml 400 ml 240 ml 100 ml 580 ml Intake Oral 360 ml 240 ml 100 ml 580 ml Other 400 ml # Voids 3 1 0 4 # Bowel Movements 3 1 0 Laboratory Laboratory Tests Test 04/24/16 05:30 White Blood Count 6.6 Red Blood Count 2.35 Hemoglobin 9.0 Hematocrit 26.0 Mean Corpuscular Volume 110.6 Mean Corpuscular Hemoglobin 38.3 Mean Corpuscular Hemoglobin 34.6 Concent Red Cell Distribution Width 13.6 Platelet Count 177 Mean Platelet Volume 7.6 Neutrophils (%) (Auto) 59.0 Lymphocytes (%) (Auto) 25.0 Monocytes (%) (Auto) 10.4 Eosinophils (%) (Auto) 4.7 Basophils (%) (Auto) 0.9 Neutrophils # (Auto) 3.9 Lymphocytes # (Auto) 1.6 Monocytes # (Auto) 0.7 Eosinophils # (Auto) 0.3 Basophils # (Auto) 0.1 CBC Comment DIFF FINAL Differential Comment Sodium Level 143 Potassium Level 3.5 Chloride Level 108 Carbon Dioxide Level 27.6 Anion Gap 7 Blood Urea Nitrogen 13 Creatinine 1.49 Estimat Glomerular Filtration 45 Rate Random Glucose 90 Calcium Level 8.1 Total Bilirubin 0.7 Aspartate Amino Transf 14 (AST/SGOT) Alanine Aminotransferase 12 (ALT/SGPT) Alkaline Phosphatase 43 Total Protein 5.3 Albumin 2.5 Imaging Last Impressions Lower Extremity Ultrasound 04/21/16 0000 Signed Impressions: Service Date/Time: Thursday, April 21, 2016 16:59 - CONCLUSION: Nonocclusive thrombus in the superficial femoral vein proximal to distal. Sravan Lopez MD Physical Exam HEENT: Normocephalic; atraumatic; no jaundice. CHEST: CTA CARDIAC: RRR ABDOMEN: Soft, nondistended, nontender; no hepatosplenomegaly; bowel sounds are present in all four quadrants. EXTREMITIES:Mild BLE edema. SKIN: Normal; no rash; no jaundice. NIP WRAPPER: No focal deficits; alert and oriented times three. (Tricia Garcia) Assessment and Plan Plan ASSESSMENT: - GIB, Melena. S/P EGD (04/21/16)---> proximal esophagitis, not biopsied because of anticoagulation, normal stomach, normal duodenum, no sign of active bleeding or old blood. No coffee ground emesis. S/P Colonoscopy with snare polypectomy and biopsy (04/23/16)---> colon polyps, diverticulosis. Pathology pending. No further bleeding. HH 9.0/26.0. Tolerating diet. - Anemia secondary to blood loss. HH 9.0/26.0. - DVT. Pt had extensive LLE DVT, s/p 3 weeks of xarelto. repeat us shows no longer occlusive. Hematology following. Okay from GI standpoint to resume anticoagulation. Xarelto to be changed to Pradaxa. - Chronic myeloproliferative disorder. Per hematology PLAN: - HERMELINDA - Await biopsy - PPI - Monitor HH - Transfuse as necessary - Okay to resume anticoagulation from GI standpoint - Supportive care - Further recommendations to follow based on results of above - Pt seen and examined by Dr. Ayala and myself and this note is written on his behalf (Tricia Garcia) Physician Comments Patient seen and examined Agree with above Continue with current supportive care Monitor labs We will sign off (Nikolas Ayala MD) Tricia Garcia Apr 24, 2016 17:58 Nikolas Ayala MD Apr 24, 2016 22:04
[2016-04-24] MEDS: PRAVASTATIN SOD 80 MG TAB PO SCH (19:43)
[2016-04-24] MEDS: DABIGATRAN ETEXILATE 75 MG CAP PO SCH (19:43)
[2016-04-24 20:00] VITALS: BP 137/65; PULSE 61; RESP 16; TEMP 98.1; O2SAT 95
[2016-04-25] VITALS: BP 164/70; PULSE 66; RESP 16; TEMP 98.5; O2SAT 94
[2016-04-25 04:00] VITALS: BP 141/65
[2016-04-25 06:30] LABS: BASOPHIL # 0.1 TH/MM3 (0-0.2); EOSINOPHIL # 0.3 TH/MM3 (0-0.4); EOSINOPHIL % 4.7 % (0.0-4.0); HEMATOCRIT 27.3 % (39.0-51.0); HEMO FLAGS DIFF FINAL; LYMPH % 22.7 % (9.0-44.0); LYMPHOCYTE # 1.5 TH/MM3 (1.0-4.8); MEAN CELL VOLUME 110.3 FL (80.0-100.0); MEAN CORPUSCULAR HEMOGLOBIN 37.9 PG (27.0-34.0); MEAN CORPUSCULAR HGB CONC 34.3 % (32.0-36.0); MONO % 11.8 % (0.0-8.0); NEUT % 59.8 % (16.0-70.0); PLATELET COUNT 170 TH/MM3 (150-450); RED BLOOD COUNT 2.48 MIL/MM3 (4.50-5.90); RED CELL DISTRIBUTION WIDTH 13.5 % (11.6-17.2); WHITE BLOOD COUNT 6.7 TH/MM3 (4.0-11.0)
[2016-04-25 06:44] LABS: POTASSIUM 3.6 MEQ/L (3.5-5.1)
[2016-04-25 08:00] VITALS: BP 149/72; PULSE 74; RESP 16; TEMP 96; O2SAT 95
--- NOTE | 2016-04-25 08:11 | HHI.DCPOC ---
Discharge Care Plan Diagnosis: (1) GI bleed Goals to Promote Your Health * To prevent worsening of your condition and complications * To maintain your health at the optimal level Directions to Meet Your Goals Take your medications as prescribed Follow your dietary instruction Follow activity as directed Keep your appointments as scheduled Take your immunizations and boosters as scheduled If your symptoms worsen call your PCP, if no PCP go to Urgent Care Center or Emergency Room Smoking is Dangerous to Your Health. Avoid second hand smoke Call the 24-hour hour crisis hotline for domestic abuse at Kadi Mcdonald MD R2 Apr 25, 2016 08:11
[2016-04-25] MEDS ORDERED: MAGNESIUM HYDROXIDE SUSP 30 ML CUP PO ONE (08:30)
[2016-04-25] MEDS: DABIGATRAN ETEXILATE 75 MG CAP PO SCH (08:57)
[2016-04-25] MEDS: HYDROXYUREA 500 MG CAP PO SCH (08:57)
[2016-04-25] MEDS ORDERED: PANTOPRAZOLE SOD 40 MG DELAYED RELEASE TAB PO SCH (09:00)
[2016-04-25] MEDS ORDERED: PRAD75CA PO (11:46)
[2016-04-25 12:00] VITALS: BP 139/78; PULSE 70; RESP 16; TEMP 97.4; O2SAT 96
--- NOTE | 2016-04-25 14:40 | HHI.FPPN ---
Subjective Remarks No acute events overnight. Hypertensive to 165/70, but normotensive this morning. Breathing well on room air. Eating, voiding, stooling, ambulating without difficulty. Feels ready to go home. No acute complaints. Denies f/c, n/v, SOB/CP, abd pain, leg pain, tarry stool. Expressed understanding of discharge with new prescription of Pradaxa with follow up with GI doctor. Informed biopsy was negative for malignancy, but would likely need repeat colonoscopy sooner than normal, per GI. (Swathi Cody MD R1) Objective Vitals Vital Signs Date Time Temp Pulse Resp B/P Pulse Ox O2 Delivery O2 Flow Rate FiO2 04/25/16 12:00 97.4 70 16 139/78 96 04/25/16 08:00 96.0 74 16 149/72 95 04/25/16 04:00 141/65 04/25/16 00:00 98.5 66 16 164/70 94 04/24/16 20:00 98.1 61 16 137/65 95 04/24/16 16:00 97.4 67 16 157/69 96 I/O 04/24/16 04/24/16 04/24/16 04/25/16 04/25/16 04/25/16 07:00 15:00 23:00 07:00 15:00 23:00 Intake Total 100 ml 580 ml 240 ml 240 ml Output Total 275 ml Balance 100 ml 580 ml 240 ml -35 ml Intake Oral 100 ml 580 ml 240 ml 240 ml Output Urine Total 275 ml # Voids 0 4 1 # Bowel Movements 0 0 0 (Swathi Cody MD R1) Result Diagram: 04/25/16 0535 04/25/16 0535 Imaging Last Impressions Lower Extremity Ultrasound 04/21/16 0000 Signed Impressions: Service Date/Time: Thursday, April 21, 2016 16:59 - CONCLUSION: Nonocclusive thrombus in the superficial femoral vein proximal to distal. Sravan Lopez MD Objective Remarks CONST: Elderly male, lying in bed comfortably, in NAD. DERM: Warm and dry HEENT: PERRL. MMM. CV: RRR. No murmur. No significant edema. RESP: Lungs CTAB. ABD: Soft NTND. +BS MUSC: SCDs in place on lower extremities. Left leg increased circumference secondary to known DVT. NEURO: AAO x3. Gross motor or sensation function intact PSYCH: Appropriate affect. Procedures 04/21/15: Panendoscopy (Dr. Dwyer) 04/23/15: Colonoscopy (Swathi Cody MD R1) A/P Assessment and Plan 86-year-old male admitted for GI bleed. Discharge Planning Today (Swathi Cody MD R1) Attending Attestation Patient seen and examined. Case reviewed and discussed with the resident team. Agree with plan of care as discussed with me and documented in the resident note. (Rosi Ramirez MD) Problem List: (1) GI bleed Status: Resolved Plan: 86y with LLE DVT, started on Xarelto 3 weeks ago, presenting with tarry stools x1 day and +hemoccult. Hgb stable GI consulted: * EGD 04/21 normal. Colonoscopy 04/23: grossly wnl. Colonic polyps, diverticulosis- Biopsy colon: tubular adenoma * Ok to anticoagulate, supportive care, repeat colonoscopy in 35 years. * Capsule endoscopy as outpatient, per GI * Protonix 40 mg PO daily (2) DVT (deep venous thrombosis) Status: Acute Plan: Know LLE DVT, started Xarelto 03/29/16, held on admission for GIB. Hematology consulted * Transfusion therapy Hgb <8 * Tolerated Pradaxa 20mg well, discontinue Xarelto at discharge (3) Chronic Renal Failure / insufficiency, unspec Status: Chronic Plan: Baseline Cr 1.5-1.6. No acute injury on admission. Daily BMP, continue to monitor, avoid nephrotoxic agents (4) FEN/PPX Status: Acute Plan: Fluids: None Electrolytes: Monitor and replace when necessary Nutrition: Heart Healthy Diet Prophylaxis: Bilateral SCDs. Lovenox 40mg SQ Q12H. Chronic medical conditions: Chronic myeloproliferative disorder- continue home hydroxyurea 500mg daily HLD: Continue statin- pravastatin 80mg HS SDW: Dr Morse (Swathi Cody MD R1) Problem Qualifiers (1) GI bleed: Qualified Code: K92.1 - Gastrointestinal hemorrhage with melena (2) DVT (deep venous thrombosis): Qualified Code: I82.412 - Acute deep vein thrombosis (DVT) of femoral vein of left lower extremity Swathi Cody MD R1 Apr 25, 2016 14:40 Rosi Ramirez MD Apr 25, 2016 16:42
--- NOTE | 2016-04-25 16:44 | PD.ONC.PN ---
Subjective Subjective Remarks No BM. No abdominal pain. No LE pain or edema.(Late entry) Objective Data Date Time Temp Pulse Resp B/P Pulse Ox O2 Delivery O2 Flow Rate FiO2 04/25/16 12:00 97.4 70 16 139/78 96 04/25/16 08:00 96.0 74 16 149/72 95 04/25/16 04:00 141/65 04/25/16 00:00 98.5 66 16 164/70 94 04/24/16 20:00 98.1 61 16 137/65 95 04/25/16 04/25/16 04/25/16 07:00 15:00 23:00 Intake Total 240 ml Output Total 275 ml Balance -35 ml Result Diagram: 04/25/16 0535 04/25/16 0535 Laboratory Results Laboratory Tests Test 04/25/16 05:35 White Blood Count 6.7 TH/MM3 Red Blood Count 2.48 MIL/MM3 Hemoglobin 9.4 GM/DL Hematocrit 27.3 % Mean Corpuscular Volume 110.3 FL Mean Corpuscular Hemoglobin 37.9 PG Mean Corpuscular Hemoglobin 34.3 % Concent Red Cell Distribution Width 13.5 % Platelet Count 170 TH/MM3 Mean Platelet Volume 7.9 FL Neutrophils (%) (Auto) 59.8 % Lymphocytes (%) (Auto) 22.7 % Monocytes (%) (Auto) 11.8 % Eosinophils (%) (Auto) 4.7 % Basophils (%) (Auto) 1.0 % Neutrophils # (Auto) 4.0 TH/MM3 Lymphocytes # (Auto) 1.5 TH/MM3 Monocytes # (Auto) 0.8 TH/MM3 Eosinophils # (Auto) 0.3 TH/MM3 Basophils # (Auto) 0.1 TH/MM3 CBC Comment DIFF FINAL Differential Comment Sodium Level 142 MEQ/L Potassium Level 3.6 MEQ/L Chloride Level 107 MEQ/L Carbon Dioxide Level 27.0 MEQ/L Anion Gap 8 MEQ/L Blood Urea Nitrogen 15 MG/DL Creatinine 1.54 MG/DL Estimat Glomerular Filtration 43 ML/MIN Rate Random Glucose 85 MG/DL Calcium Level 8.2 MG/DL Objective Remarks GENERAL: Well-nourished, well-developed patient. SKIN: Warm and dry. HEAD: Normocephalic. EYES: No scleral icterus. No injection or drainage. NECK: Supple, trachea midline. No JVD or lymphadenopathy. LYMPHATIC: No adenopathy. CARDIOVASCULAR: Regular rate and rhythm without murmurs. RESPIRATORY: Breath sounds equal bilaterally. No accessory muscle use. GASTROINTESTINAL: Abdomen soft, non-tender, nondistended. EXTREMITIES: No cyanosis, or trace ankles edema. MUSCULOSKELETAL: Adequate muscle tone. NEUROLOGICAL: No obvious focal deficit. Awake, alert, and oriented x3. PSYCHIATRIC: Appropriate mood and affect; insight and judgment normal. Assessment/Plan Problem List: (1) DVT (deep venous thrombosis) Status: Acute Plan: 04/25/16: Tolerated pradaxa, no evidence of bleeding. No evidence of clot progression. 04/24/16: start pradaxa at 75mg bid dose 04/23/16: prophylactic dose of Lovenox given s/p colonoscopy. Extensive LLE DVT. s/p 3 weeks Xarelto, repeat US show response no longer occlusive. Contraindication to anticoagulation- GI bleeding. Xarelto stopped- possible lingering effect of anticoagulation with prolong PT despite stopping Xarelto- last dose Saturday s/p Vitamin K Pt less inclined to consider the IVC filter. Maybe able to avoid IVC filter since bleeding stopped, L leg clot improved. (2) GI bleed Status: Resolved Plan: --Resolved. --EGD (04/23/16) showed colon polyps and diverticulosis (3) Anemia Status: Acute Plan: --Mild B12 deficiency s/p empiric treatment. --Follow hgb. --Bleeding appear to be resolving. (4) Chronic myeloproliferative disorder (clinical) Status: Chronic Plan: --Long h/o OLIVER II positive CMPD, essential thrombocytosis. --Platelet controlled on HU, continue HU, monitor platelets. Assessment 86 y/o man with OLIVER II positive CMPD, platelet count controlled on HU 500mg daily, course complicated by LLE DVT and GI bleed on Xarelto. Holding Xarelto. Plan 1. monitor CBC 2. Continue pradaxa 75mg BID 3. F/u heme clinic. Problem Qualifiers (1) DVT (deep venous thrombosis): Qualified Code: I82.412 - Acute deep vein thrombosis (DVT) of femoral vein of left lower extremity (2) GI bleed: Qualified Code: K92.1 - Gastrointestinal hemorrhage with melena Lenny Caldera MD Apr 25, 2016 16:44
[2016-04-28] MEDS ORDERED: PRAD75CA PO (11:41)
--- NOTE | 2016-05-01 16:33 | HHI.DS ---
Discharge Summary Admission Date Apr 20, 2016 at 19:44 Discharge Date: Apr 25, 2016 Admitting Diagnosis GIB on Xarelto (1) GI bleed Diagnosis: Principal Plan: 86y with LLE DVT, started on Xarelto 3 weeks ago, presenting with tarry stools x1 day and +hemoccult. Hgb stable GI consulted: * EGD 04/21 normal. Colonoscopy 04/23: grossly wnl. Colonic polyps, diverticulosis- Biopsy colon: tubular adenoma * Ok to anticoagulate, supportive care, repeat colonoscopy in 35 years. * Capsule endoscopy as outpatient, per GI * Protonix 40 mg PO daily (2) DVT (deep venous thrombosis) Diagnosis: Principal Plan: Know LLE DVT, started Xarelto 03/29/16, held on admission for GIB. Hematology consulted * Transfusion therapy Hgb <8 * Tolerated Pradaxa 20mg well, continue Pradaxa at d/c, discontinue Xarelto at discharge (3) Chronic Renal Failure / insufficiency, unspec Diagnosis: Secondary Plan: Baseline Cr 1.5-1.6. No acute injury on admission. -Daily BMP, continue to monitor, avoid nephrotoxic agents Consultants GI, Heme, Case Management Procedures 04/21/15: Panendoscopy (Dr. Dwyer) 04/23/15: Colonoscopy Brief History 86y male with known DVT LLE who just started Xarelto 3w ago presents to the ER with dark stools x2 days. Denies abdominal pain. No n/v, diarrhea/ constipation. Last colonoscopy 2007 as was normal. Imaging Last Impressions Lower Extremity Ultrasound 04/21/16 0000 Signed Impressions: Service Date/Time: Thursday, April 21, 2016 16:59 - CONCLUSION: Nonocclusive thrombus in the superficial femoral vein proximal to distal. Sravan Lopez MD PE at Discharge CONST: Elderly male, lying in bed comfortably, in NAD. DERM: Warm and dry HEENT: PERRL. MMM. CV: RRR. No murmur. No significant edema. RESP: Lungs CTAB. ABD: Soft NTND. +BS MUSC: SCDs in place on lower extremities. Left leg increased circumference secondary to known DVT. NEURO: AAO x3. Gross motor or sensation function intact PSYCH: Appropriate affect. Hospital Course 86y male with CKD III and DVT LLE, on Xarelto, hospitalized 04/20-04/25/16 for GI bleed. Presented with +Hemoccult, dark tarry stools (which resolved over hospital course), and Hgb of 6.9 which responded appropriately to 2 units pRBCs. Underwent EGD and colonoscopy which were grossly normal- no acute source of bleeding was found. Started on both PPI and Pradaxa (with discontinualtion of Xarelto). To f/u with GI for capsule endoscopy as outpt. Discharged home in stable condition with stable H/H. Medication changes and rec'd follow-up, as below. . Pt Condition on Discharge: Stable Discharge Disposition: Discharge Home Discharge Instructions DIET: Follow Instructions for: As Tolerated, No Restrictions Activities you can perform: Weight Bearing as Lauren Follow up Referrals: Gastroenterology - 05/26/16 with Nikolas Ayala MD Hematology - 1 Week with Keyona Dawn MD PCP Follow-up - 1 Week Continued Medications: Aspirin (Aspirin) 325 Mg Tab 325 MG PO DAILY #30 Ref 0 TAB Cholecalciferol (Vitamin D-3) 1,000 Unit Tab 1000 UNITS PO DAILY #30 Ref 0 TAB Hydroxyurea (Hydrea) 500 Mg Cap 500 MG PO DAILY Ref 0 CAP Logan-3 Fatty Acids (Fish Oil) 1,000 Mg Cap 1 CAP PO DAILY Pantoprazole (Protonix) 40 Mg Tab 40 MG PO DAILY Reflux #90 Ref 0 TAB Simvastatin (Zocor) 40 Mg Tab 40 MG PO HS Cholesterol Management #90 Ref 0 TAB Discontinued Medications: Rivaroxaban (Xarelto) 20 Mg Tab 20 MG PO DAILY Blood Clot Prevention Ref 0 TAB Swathi Cody MD R1 May 01, 2016 16:33
[2016-07-23] MEDS ORDERED: PROT40TA PO (11:18)
[2016-10-01] MEDS ORDERED: ZOCO40TA PO (13:57)
== END 2016-04-25 14:42 | disposition home or self-care (01) | DRG 378 ==
LOC: NETRI 16:57 → NEDA 19:44 → N06A 23:54
PROVIDERS: ADMIT Family Medicine; ATTEND Family Medicine
PROC: 0DJ08ZZ Inspection of Upper Intestinal Tract, Via Natural or Artificial Opening Endoscopic (ICD-10-PCS; principal; 2016-04-21 15:38)
PROC: 0DBK8ZX Excision of Ascending Colon, Via Natural or Artificial Opening Endoscopic, Diagnostic (ICD-10-PCS; 2016-04-23)
PROC: 0DBL8ZX Excision of Transverse Colon, Via Natural or Artificial Opening Endoscopic, Diagnostic (ICD-10-PCS; 2016-04-23)
PROC: 0DBH8ZX Excision of Cecum, Via Natural or Artificial Opening Endoscopic, Diagnostic (ICD-10-PCS; 2016-04-23)
DX: K25.4 Chronic or unspecified gastric ulcer with hemorrhage (principal); I82.412 Acute embolism and thrombosis of left femoral vein; D68.9 Coagulation defect, unspecified; D47.1 Chronic myeloproliferative disease; N18.9 Chronic kidney disease, unspecified; E78.5 Hyperlipidemia, unspecified; I12.9 Hypertensive chronic kidney disease with stage 1 through stage 4 chronic kidney disease, or unspecified chronic kidney disease; I25.10 Atherosclerotic heart disease of native coronary artery without angina pectoris; D47.3 Essential (hemorrhagic) thrombocythemia; G62.9 Polyneuropathy, unspecified; K20.9 Esophagitis, unspecified; K57.90 Diverticulosis of intestine, part unspecified, without perforation or abscess without bleeding; K63.5 Polyp of colon; Z80.0 Family history of malignant neoplasm of digestive organs; Z85.828 Personal history of other malignant neoplasm of skin; E53.8 Deficiency of other specified B group vitamins; D50.0 Iron deficiency anemia secondary to blood loss (chronic); H91.90 Unspecified hearing loss, unspecified ear
CPT/HCPCS: 80048; 80053; 82607; 83690; 85014; 85018; 85025; 85384; 85610; 85730; 86850; 86900; 86901; 88305; 93005; 93971; C9113; J1650; J3420; J7030; J7120